=== PATIENT | female | born 1970 | race Caucasian/White ===

== ENCOUNTER 2019-09-04 09:52 | Emergency (ER) | payer OTHER, MEDICAID, SELFPAY ==
[2019-09-04 10:06] VITALS: BP 104/61; PULSE 102; RESP 16; TEMP 37.2; O2SAT 99
--- NOTE | 2019-09-04 10:08 | ED.GENADULT ---
HPI - General Adult General Chief complaint: Upper Respiratory Infection Stated complaint: possible sinus infection Time Seen by Provider: 09/04/19 10:08 Source: patient Mode of arrival: ambulatory Limitations: no limitations History of Present Illness HPI narrative: 49-year-old female patient presents to the [facility] with complaints of sinus pressure and allergies for the past 10 days. Patient denies any fevers, chest pain or shortness of breath. Patient states that she has had a little bit of a cough and coughing up green sputum at times. Patient states she has had a lot of pressure to the front part of her head as well as under her eyes. Patient states she has been sneezing, runny nose. Patient states she does take Vanessa daily and has been using Flonase as well as Sudafed. 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 Related Data Allergies Allergy/AdvReac Type Severity Reaction Status Date / Time No Known Allergies Allergy Unknown Verified 07/06/19 08:18 Review of Systems Review of Systems: Narrative: CONSTITUTIONAL: Denies fever, chills, or sweats. EYES: Denies visual changes, redness, or discharge. ENT: Positive rhinorrhea, congestion, denies sore throat, or otalgia. CARDIOVASCULAR: Denies chest pain, palpitations, or edema. RESPIRATORY: Positive cough, denies dyspnea. GASTROINTESTINAL: Denies abdominal pain, nausea, vomiting, or diarrhea. GENITOURINARY: Denies dysuria or hematuria. SKIN: Denies rash or itching. MUSCULOSKELETAL: Denies back pain, joint pain, or myalgia. NEUROLOGIC: Positive headache, denies numbness, or weakness. PSYCHIATRIC: Denies anxiety or depression. [facility] Past Medical History Medical History Arthritis Chronic back pain Kidney stones Surgical History Surgical History H/O tubal ligation Ablation/hysterectomy Social History Social History Smoking status: Light tobacco smoker Alcohol intake: never Comments At the time of my signature I agree with nursing past medical history, surgical, social, and family history. There is no relevant family history pertinent to the presenting complaint. Exam Narrative: Exam Narrative: GENERAL: Well-appearing, well-nourished, and in no acute distress. HEAD: Normocephalic, atraumatic. Tenderness noted to frontal maxillary sinuses on palpation EYES: PERRLA and EOMI. ENT: Nares clear, no rhinorrhea or epistaxis. Mucous membranes moist. Posterior pharynx with no erythema, tonsil enlargement, exudates or lesions present. Bilateral TMs are clear with no erythema from eyes to the canal. NECK: Supple. No lymphadenopathy CHEST: Clear to auscultation. No respiratory distress. HEART: Regular rate and rhythm. No murmur heard. Normal peripheral pulses. ABDOMEN: Soft, nontender, nondistended, normal active bowel sounds. EXTREMITIES: Normal range of motion. No edema. SKIN: Warm, dry, no rash. NEURO: No focal deficits. Alert and oriented x3. Course Vital Signs Vital signs: Vital Signs Temperature 37.2 C 09/04/19 10:06 Pulse Rate 102 H 09/04/19 10:06 Respiratory Rate 16 09/04/19 10:06 Blood Pressure 104/61 09/04/19 10:06 Pulse Oximetry 99 09/04/19 10:06 Temperature 37.2 C 09/04/19 10:06 Pulse Rate 102 H 09/04/19 10:06 Respiratory Rate 16 09/04/19 10:06 Blood Pressure 104/61 09/04/19 10:06 Pulse Oximetry 99 09/04/19 10:06 Vital signs reviewed. Medical Decision Making Differential Diagnosis Differential Diagnosis: Differential diagnosis: Allergic rhinitis, chronic sinusitis, tonsillitis, acute sinusitis, infectious mononucleosis, seasonal influenza, pertussis, diphtheria, meningococcal disease, viral syndrome, viral bronchitis, RSV. Discussed with patient that since she
== END 2019-09-04 10:21 | disposition home or self-care (01) ==
PROVIDERS: Emergency Provider Nurse Practitioner Family; PCP Internal Medicine
DX: J01.10 Acute frontal sinusitis, unspecified (principal); M19.90 Unspecified osteoarthritis, unspecified site; Z87.442 Personal history of urinary calculi; F17.200 Nicotine dependence, unspecified, uncomplicated
CPT/HCPCS: 99213; G0463

== ENCOUNTER 2020-01-06 12:48 | Outpatient (NON) | payer OTHER, MEDICAID, SELFPAY ==
[2020-01-06 21:42] LABS: SARS-CoV-2 RNA PCR Negative
== END 2020-01-06 12:49 ==
LOC: ANHCOVIDDT 12:49
PROVIDERS: PCP Internal Medicine; Visit Provider Internal Medicine
DX: R68.89 Other general symptoms and signs (principal); Z20.828 Contact with and (suspected) exposure to other viral communicable diseases
CPT/HCPCS: 87635; C9803; U0003

== ENCOUNTER 2020-02-23 09:18 | Emergency (ER) | payer OTHER, MEDICAID, SELFPAY ==
[2020-02-23 09:28] VITALS: BP 110/70; PULSE 98; RESP 16; TEMP 36.6; O2SAT 98
--- NOTE | 2020-02-23 09:47 | ED.URI ---
HPI - URI/Sore Throat General Chief Complaint: Upper Respiratory Infection Stated Complaint: Cough,Ear Pain History of Present Illness HPI Narrative: This is a 49-year-old white female that presented to the urgent care with complaints of sore throat, earache, photophobia, headache that she has been having since this weekend. Patient does have a history of sinusitis and had strep throat last year. At home she has been taking Tylenol and alternating it with ibuprofen and Flonase without any relief. The patient denies SOB, CP, palpitation, extremity numbness, lightheadedness, dizziness, constipation, diarrhea, chills, or fever. Patient did recently get checked for Covid which was negative Related Data Home Medications Medication Instructions Recorded Confirmed fexofenadine [Vanessa] 180 mg PO DAILY 02/23/20 02/23/20 fluticasone propionate [Flonase] 1 spray INTRANASAL DAILY 02/23/20 02/23/20 Allergies Allergy/AdvReac Type Severity Reaction Status Date / Time Mmvvmjv-[id number]-Qcp Reductase AdvReac Intermediate Muscle Verified 11/26/19 13:48 Inhibitor cramps/pain Review of Systems Review of Systems: All systems reviewed & are unremarkable except as noted in HPI and below (10 point system review) [facility] Past Medical History Medical History Arthritis Chronic back pain Kidney stones Surgical History Surgical History H/O tubal ligation Ablation/hysterectomy Family History Family History Mother Family history of malignant neoplasm of thyroid Family history of malignant neoplasm Father Patient's father is Sibling Family history of malignant neoplasm of thyroid Other Family history of malignant neoplasm of breast Social History Social History Smoking status: Light tobacco smoker Alcohol intake: never Exam Narrative: Exam Narrative: GENERAL: This is a well-nourished, well-developed patient, in no apparent distress. HEAD: normocephalic, atraumatic. EYES: PERRL. Sclera clear/white. Vision is grossly intact. EARS: External ears normal, auditory canals clear and without drainage, TMs normal without perforation. Hearing grossly intact. NOSE: External nose normal with no obvious nasal discharge, nares without redness, no rhinorrhea. Nasal sinuses tender THROAT: Mucous membranes moist, posterior pharynx edematous with erythema. NECK: Neck supple, non-tender without lymphadenopathy, masses or thyromegaly. CARDIOVASCULAR: Regular rate and rhythm without murmurs, gallops, or rubs. RESPIRATORY: Clear to auscultation. Breath sounds equal bilaterally. No wheezes, rales, or rhonchi. GASTROINTESTINAL: Abdomen soft, non-tender, nondistended. Bowel sounds are active. No hepato-splenomegaly, or palpable masses. No guarding. SKIN: warm, intact with no suspicious lesions or rash, good texture and turgor. NEURO: awake, alert, and oriented to person, place and time. There were no obvious focal neurologic abnormalities. Steady gait EXTREMITIES: Normal range of motion. No edema. No calf tenderness. Negative Homans sign bilaterally. BACK: Nontender without deformity or crepitance. No flank tenderness. Course Course Emergency Course: Patient will discharge home today with Augmentin x7 days continue to use her Flonase Vital Signs Vital signs: Vital Signs Temperature 97.8 F 02/23/20 09:28 Pulse Rate 98 02/23/20 09:28 Respiratory Rate 16 02/23/20 09:28 Blood Pressure 110/70 02/23/20 09:28 Pulse Oximetry 98 02/23/20 09:28 Temperature 97.8 F 02/23/20 09:28 Pulse Rate 98 02/23/20 09:28 Respiratory Rate 16 02/23/20 09:28 Blood Pressure 110/70 02/23/20 09:28 Pulse Oximetry 98 02/23/20 09:28 MDM - URI/Sore Throat Differentia
== END 2020-02-23 09:58 | disposition home or self-care (01) ==
PROVIDERS: Emergency Provider Nurse Practitioner; PCP Internal Medicine
DX: J32.9 Chronic sinusitis, unspecified (principal); F17.200 Nicotine dependence, unspecified, uncomplicated; M19.90 Unspecified osteoarthritis, unspecified site
CPT/HCPCS: 87081; 87880; 99213; G0463

== ENCOUNTER 2020-04-13 11:51 | Outpatient (NON) | payer OTHER, MEDICAID, SELFPAY ==
[2020-04-13 21:41] LABS: SARS-CoV-2 RNA PCR Negative
== END 2020-04-13 11:52 ==
LOC: ANHCOVIDDT 11:52
PROVIDERS: Family Provider Internal Medicine; PCP Internal Medicine; Visit Provider Internal Medicine
DX: R68.89 Other general symptoms and signs (principal); Z20.822 Contact with and (suspected) exposure to COVID-19
CPT/HCPCS: C9803; U0003; U0005

== ENCOUNTER 2020-08-01 22:13 | Emergency (ER) | payer OTHER, MEDICAID, SELFPAY ==
[2020-08-01 22:17] VITALS: BP 133/74; PULSE 89; RESP 18; TEMP 36.7; O2SAT 100
--- NOTE | 2020-08-01 23:12 | PC.NURSE ---
pt to ED c/o Right upper dental pain d/t problem tooth, which pt reports has been painful in the past. denies access to dental care. reports pain got worse today.
--- NOTE | 2020-08-01 23:21 | ED.DENTAL ---
HPI - Dental/Oral General Chief complaint: Dental/Oral Stated complaint: right jaw pain Time Seen by Provider: 08/01/20 23:18 Source: patient Mode of arrival: ambulatory Limitations: no limitations History of Present Illness HPI Narrative: Patient is a 50 year old female who presents complaining of right upper dental pain x 1 day. She reports having the same in that past. She reports she is waiting to have tooth removed. Patient reports dental extractions on the left side but has not had right side completed at this time due to financial difficulties. She denies all other complaints at this time. Related Data Home Medications Medication Instructions Recorded Confirmed fexofenadine [Vanessa] 180 mg PO DAILY 02/23/20 05/08/20 fluticasone propionate [Flonase] 1 spray INTRANASAL DAILY 02/23/20 05/08/20 Allergies Allergy/AdvReac Type Severity Reaction Status Date / Time Fjzlvdg-Rev-Bth Reductase AdvReac Intermediate Muscle Verified 08/01/20 22:20 Inhibitor cramps/pain Review of Systems Review of Systems: Narrative: CONSTITUTIONAL: Denies fever, chills, or sweats. EYES: Denies visual changes, redness, or discharge. ENT: Denies rhinorrhea, congestion, sore throat, or otalgia. Right upper dental pain CARDIOVASCULAR: Denies chest pain, palpitations, or edema. RESPIRATORY: Denies cough or dyspnea. GASTROINTESTINAL: Denies abdominal pain, nausea, vomiting, or diarrhea. GENITOURINARY: Denies dysuria or hematuria. SKIN: Denies rash or itching. MUSCULOSKELETAL: Denies back pain, joint pain, or myalgia. NEUROLOGIC: Denies headache, numbness, dizziness, or weakness. PSYCHIATRIC: Denies anxiety or depression. [facility] Past Medical History Medical History (Updated 08/01/20 @ 23:43 by ROC Garibay) Arthritis Chronic back pain Kidney stones Surgical History Surgical History H/O tubal ligation Ablation/hysterectomy Family History Family History Mother Family history of malignant neoplasm of thyroid Family history of malignant neoplasm Father Patient's father is Sibling Family history of malignant neoplasm of thyroid Other Family history of malignant neoplasm of breast Social History Social History (Updated 08/01/20 @ 23:38 by ROC Garibay) Smoking status: Light tobacco smoker Alcohol intake: never Substance use: never Comments At the time of signature, I have reviewed and agree with nursing past medical, surgical, social, and family history unless otherwise noted. Please see nursing chart for further information. There is no relevant family history pertinent to the presenting complaint. Exam Narrative: Exam Narrative: GENERAL: Well-appearing, well-nourished, and in no acute distress. HEAD: Normocephalic, atraumatic. EYES: EOMI. No redness or drainage. Conjunctiva are normal. ENT: Mucous membranes pink and moist. Multiple dental caries and dental fractures. CHEST: No respiratory distress. Clear to auscultation. HEART: Regular rate and rhythm. EXTREMITIES: Normal range of motion. SKIN: Warm, dry, no rash. NEURO: No focal deficits. Alert and oriented x3. Gait steady. PSYCH: Normal affect. No signs of depression or anxiety. Course Vital Signs Vital signs: Vital Signs Temperature 36.7 C 08/01/20 22:17 Pulse Rate 89 08/01/20 22:17 Respiratory Rate 18 08/01/20 22:17 Blood Pressure 133/74 08/01/20 22:17 Pulse Oximetry 100 08/01/20 22:17 Temperature 36.7 C 08/01/20 22:17 Pulse Rate 89 08/01/20 22:17 Respiratory Rate 18 08/01/20 22:17 Blood Pressure 133/74 08/01/20 22:17 Pulse Oximetry 100 08/01/20 22:17 Reviewed-patient is informed that they may have pre-hypertension or hypertension based on a blood pressure reading. I recommend the patient call the primary care provider listed on their disc
[2020-08-01] MEDS: AMOXICILLIN/CLAVULANATE K 875-125 MG TAB 1 TABLET PO (23:54)
== END 2020-08-01 23:56 | disposition home or self-care (01) ==
PROVIDERS: Emergency Provider Nurse Practitioner; PCP Internal Medicine
DX: K02.9 Dental caries, unspecified (principal); K04.7 Periapical abscess without sinus; K08.89 Other specified disorders of teeth and supporting structures; M19.90 Unspecified osteoarthritis, unspecified site
CPT/HCPCS: 99283; A9270

== ENCOUNTER 2020-11-02 08:44 | Observation (INO) | payer OTHER, MEDICAID, SELFPAY ==
[2020-11-02] VITALS (8 sets, daily range): BP systolic 88–103; BP diastolic 60–84; PULSE 80–130; RESP 12–26; TEMP 36.1–37; O2SAT 96–99
--- NOTE | 2020-11-02 | ECHO_ITS ---
Patient Info Name: Slime Ramirez Age: 50 years : 1970 Gender: Female Ht: 65 in Wt: 150 lbs BSA: 1.78 m2 HR: 82 bpm BP: 98 / 74 mmHg Heart Rhythm: Sinus Rhythm Exam Date: 11/03/2020 8:54 AM Exam Location: [facility] Patient Status: Inpatient Admit Date: 11/02/2020 Staff Ordering Physician: Araceli Meade MD Import Export Coordinator: Marek Borden RDCS, RT Attending Provider: Renata Solis PA-C Referring Physician: Deshaun CALVIN; Exam Type: CA echo doppler color flow Study Info Indications I52 - Other heart disorders in diseases classified elsewhere Complete two-dimensional, color flow and Doppler transthoracic echocardiogram is performed. Strain analysis performed. Summary 1. Complete two-dimensional, color flow and Doppler transthoracic echocardiogram is performed. 2. Left ventricular chamber dimension is normal. 3. Left ventricular systolic function is normal, estimated at 55-60%. 4. There is no increased left ventricular wall thickness. 5. There is no aortic valve stenosis. 6. There is mild mitral valve regurgitation. 7. There is mild tricuspid valve regurgitation. 8. No pulmonary hypertension, estimated pulmonary arterial systolic pressure is 22 mmHg. Left Ventricle Left ventricular chamber dimension is normal. Left ventricular systolic function is normal, estimated at 55-60%. There is no increased left ventricular wall thickness. The left ventricular diastolic function is normal. Global longitudinal strain is normal at -21 %. Right Ventricle Right ventricular chamber dimension is normal. Right ventricular systolic function is normal. Left Atria Left atrial chamber dimension is normal. Right Atria Right atrial chamber dimension is normal. Aortic Valve The aortic valve is probable trileaflet. There is no aortic valve stenosis. There is no aortic valve regurgitation. Pulmonic Valve The pulmonic valve is not well visualized. Mitral Valve The mitral valve has normal leaflets. There is mild mitral valve regurgitation. Tricuspid Valve The tricuspid valve leaflets are normal. There is mild tricuspid valve regurgitation. No pulmonary hypertension, estimated pulmonary arterial systolic pressure is 22 mmHg. Pericardium/Pleural The pericardium appears normal. There is trivial pericardial effusion. Inferior Vena Cava Normal inferior vena cava with >50% collapse upon inspiration consistent with Empty right atrial pressure, 5 mmHg. Aorta The aortic root size at the sinus of Valsalva is normal. Left Ventricular Outflow Tract Name Value Normal LVOT 2D LVOT Diameter 2.0 cm LVOT Doppler LVOT Peak Gradient 4 mmHg LVOT Mean Gradient 2 mmHg LVOT VTI 20 cm LVOT VTI/AV VTI Ratio 0.7 LVOT Stroke Volume 62 ml LVOT CO 5.1 l/min LVOT CI 2.9 l/min/m2 Mitral Valve Name
--- NOTE | ~2020-11-02 | CT_ITS ---
EXAMINATION: CTA chest PE abdomen pel DATE: 11/02/2020 10:46 INDICATION: Epigastric abdominal pain. Dyspnea. TECHNIQUE: Computed tomography angiography (CTA) of the chest was performed with 100 mL Omnipaque-350 intravenous contrast timed to evaluate the pulmonary arteries. Coronal maximum intensity projection 3D-reconstructions were created by the technologist. Computed tomography (CT) of the abdomen and pelv is was performed with intravenous contrast. Automated exposure control and iterative reconstruction t echnique were employed. The dose-length product was 482.26 mGy-cm. COMPARISON: None. FINDINGS: CTA chest: The lungs demonstrate mild atelectasis. No pleural effusion. The heart size is normal. No pericardial effusion. There is no pulmonary embolus. There is mild thoracic spondylosis. CT abdomen and pelvis: The liver, gallbladder, spleen, pancreas, adrenal glands, and right kidney are normal. There are cysts in left kidney measuring up to 3.0 cm. There are surgical clips at the fallo pian tubes bilaterally. There are no dilated loops of bowel. The appendix is normal. There are no pat hologically enlarged lymph nodes. There is no free intraperitoneal fluid. There is mild lumbar spondy losis. IMPRESSION: 1. No pulmonary embolus. 2. No etiology for the patient's symptoms. Reviewed, dictated and finalized at location B.
--- NOTE | ~2020-11-02 | XR_ITS ---
EXAMINATION: XR chest 2V DATE: 11/02/2020 09:23 INDICATION: Chest pain. TECHNIQUE: Frontal and lateral views of the chest were obtained. COMPARISON: Chest 2 views 07/08/2013 FINDINGS: The chest demonstrates clear lungs without pneumonia, pleural effusion, or pneumothorax. Th e heart size is normal. IMPRESSION: 1. No acute cardiopulmonary disease. Reviewed, dictated and finalized at location B.
--- NOTE | 2020-11-02 09:02 | ECG_ITS ---
Measurements Intervals [place] Rate: 129 P: 105 VA: 211 QRS: 89 QRSD: 87 T: -18 QT: 315 QTc: 461 Interpretive Statements ECTOPIC ATRIAL TACHYCARDIA WITH RAPID VENTRICULAR RESPONSE LOW QRS VOLTAGE IN PRECORDIAL LEADS BORDERLINE ST-T WAVE ABNORMALITY- ANTEROLAT/INF LEADS ABNORMAL ECG Electronically Signed On 11-02-2020 12:13:13 CDT by Can Treviño D.O.
--- NOTE | 2020-11-02 09:03 | ED.CHESTPAIN ---
HPI - Chest Pain General Chief Complaint: Chest Pain Stated Complaint: multiple complaints Time Seen by Provider: 11/02/20 09:01 Source: patient Mode of arrival: ambulatory Limitations: no limitations History of Present Illness HPI narrative: Patient is a 50-year-old female with a history of hyperlipidemia who presents for evaluation of epigastric pain. Patient reports intermittent, burning epigastric pain over the past 2 weeks, was recently started on omeprazole by her primary care physician. Patient describes the pain as moderate to severe nature, overnight she was unable to sleep secondary to the pain. She reports mild nausea without emesis. No fever, chills, cough although she does report some shortness of breath and palpitations. No significant chest pain, no radiation of the pain to the back or neck. Patient states that the pain is worse after eating. She reports mild abdominal distention. She denies diarrhea or constipation. Related Data Home Medications Medication Instructions Recorded Confirmed fluticasone propionate 50 1 spray INTRANASAL DAILY PRN 09/20/20 11/02/20 mcg/actuation nasal spray,suspension albuterol sulfate [Ventolin HFA] See Rx Instructions .ROUTE 11/02/20 11/02/20 .COMPLEX PRN alprazolam 1 mg PO TID 11/02/20 11/02/20 cyclobenzaprine See Rx Instructions .ROUTE 11/02/20 11/02/20 .COMPLEX PRN hydrocodone-acetaminophen 1 tablet PO BID PRN 11/02/20 11/02/20 trazodone 150 mg PO HS 11/02/20 11/02/20 Allergies Allergy/AdvReac Type Severity Reaction Status Date / Time Wqbvigy-Gsj-Edy Reductase AdvReac Intermediate Muscle Verified 11/02/20 15:42 Inhibitor cramps/pain Review of Systems Review of Systems: CONSTITUTIONAL: Denies fever, chills, or sweats. EYES: Denies visual changes, redness, or discharge. ENT: Denies rhinorrhea, congestion, sore throat, or otalgia. CARDIOVASCULAR: Denies chest pain, reports palpitations RESPIRATORY: Denies cough, reports mild shortness of breath GASTROINTESTINAL: Reports epigastric pain, nausea, denies vomiting GENITOURINARY: Denies dysuria or hematuria. SKIN: Denies rash or itching. MUSCULOSKELETAL: Denies back pain, joint pain, or myalgia. NEUROLOGIC: Denies headache, numbness, or weakness. [facility] Past Medical History Medical History (Updated 11/02/20 @ 13:24 by Araceli Meade MD) Arthritis Chronic back pain Kidney stones Surgical History Surgical History H/O tubal ligation Ablation/hysterectomy Family History Family History Mother Family history of malignant neoplasm of thyroid Family history of malignant neoplasm Father Patient's father is Sibling Family history of malignant neoplasm of thyroid Other Family history of malignant neoplasm of breast Social History Social History Smoking packs per day: 0.5 Smoking cigarettes per day: 10.0 Years smoked: 30 Smoking pack-years: 15.00 Smoking status: Current every day smoker Tobacco type: cigarettes Second hand tobacco smoke exposure: Yes Alcohol intake: never Substance use: never Spiritual care concerns: No Exam Narrative: GENERAL: Awake, alert, conversant HEAD: Normocephalic, atraumatic. EYES: PERRLA and EOMI. ENT: Nares clear, no rhinorrhea or epistaxis. Mucous membranes moist. NECK: Supple. CHEST: No respiratory distress, breathing even and non labored HEART: Tachycardic rate, sinus rhythm ABDOMEN:Non distended, epigastric and right upper quadrant tenderness, negative Borden sign, no rebound, no guarding, nonrigid EXTREMITIES: Normal range of motion. No edema. SKIN: Warm, dry, no rash. NEURO:No focal deficits. Alert and oriented x3 Course Vital Signs Vital signs: Vital Signs Temperature 36.6 C 11/02/20 09:04 Pulse Rate 129 H 11/02/20
[2020-11-02] MEDS: SODIUM CHLORIDE 0.9% IV 1,000 ML 999 ML IV CONT (09:24)
[2020-11-02] MEDS: ONDANSETRON INJ 4 MG/2 ML VIAL IV PUSH (09:25)
[2020-11-02] MEDS: MORPHINE SULFATE (*CRX) 4 MG/ML INJ IV PUSH (09:25)
[2020-11-02 09:49] LABS: Basophils Absolute Auto 0.1 K/mm3 (0.0-0.1); Basophils Percent Auto 0.6 % (0.2-1.2); Eosinophils Absolute Auto 0.2 K/mm3 (0-0.3); Eosinophils Percent Auto 2.2 % (0-4.4); Hematocrit 40.7 % (37.0-47.0); Hemoglobin 13.2 g/dL (12.0-15.0); Immature Granulocyte Absolute 0.03 K/mm3 (0.00-0.031); Immature Granulocyte Percent A 0.3 % (0-0.5); Lymphocytes Absolute Auto 3.17 K/mm3 (0.9-3.2); Mean Corpuscular HGB Conc 32.4 g/dl (32-36); Mean Corpuscular Hemoglobin 31.1 pg (26-34); Mean Corpuscular Volume 95.8 fl (80-100); Mean Platelet Volume 10.2 fl (7.4-10.4); Monocytes Absolute Auto 0.9 K/mm3 (0.1-0.6); Monocytes Percent Auto 8.6 % (2.6-8.5); Neutrophils Absolute Auto 6.2 K/mm3 (1.3-6.7); Neutrophils Percent Auto 58.3 % (45.5-73.1); Platelet Count Result 316 k/mm3 (150-375); Red Blood Count 4.25 M/mm3 (4.2-5.4); Red Cell Distribution Width 13.1 % (11.5-14.5); White Blood Count 10.6 K/mm3 (4.5-10.0)
[2020-11-02 10:04] LABS: INR 0.9; Partial Thromboplastin Time 25.2 SECONDS (22.3-36.8); Prothrombin Time 11.8 Seconds (11.1-14.7)
[2020-11-02 10:05] LABS: Lactic Acid Reflex 0.7 mmol/L (0.7-2.1)
[2020-11-02 10:08] LABS: Alanine Aminotransferase 27 U/L (4-35); Albumin Level 3.7 g/dL (3.5-5.1); Alkaline Phosphatase 78 U/L (38-126); Anion Gap 6 mmol/L (8-16); Aspartate Amino Transferase 30 U/L (14-36); Bilirubin,Total 0.6 mg/dL (0.2-1.3); Blood Urea Nitrogen 16 mg/dL (7-17); Calcium 8.7 mg/dL (8.4-10.2); Carbon Dioxide 21 mmol/L (22-30); Chloride 110 mmol/L (98-107); Estimated CRCL calculation 86 ml/min; Estimated Glomerular Filt Rate > 60; Glucose 92 mg/dL (65-110); Sodium 137 mmol/L (137-145)
[2020-11-02 10:13] LABS: NT Pro B Type Natriuretic Pept 2670 pg/mL (5-100)
[2020-11-02 10:14] LABS: Alanine Aminotransferase 29 U/L (4-35); Albumin Level 3.9 g/dL (3.5-5.1); Alkaline Phosphatase 80 U/L (38-126); Aspartate Amino Transferase 32 U/L (14-36); Bilirubin,Total 0.7 mg/dL (0.2-1.3); Lipase 37 U/L (23-300)
[2020-11-02 10:15] LABS: Troponin I < 0.012 ng/mL (0.000-0.034)
--- NOTE | 2020-11-02 10:36 | PC.NURSE ---
Pt states she is unable to give urine sample at this time. Informed pt that we will need a sample ASHLEY
[2020-11-02 11:34] LABS: Troponin I < 0.012 ng/mL (0.000-0.034)
[2020-11-02 11:43] LABS: Add Urine Microscopic? YES; Appearance Urine Cloudy (Clear); Bilirubin Urine Negative (Negative); Blood Urine Negative (Negative); Color Urine Straw (Yellow); Glucose Urine UA Negative (Negative); Ketones Urine Trace mg/dL (Negative); Leukocyte Esterase Ur Negative LEU/UL (Negative); Mucus Urine Rare /lpf; Nitrate Urine Negative (Negative); Protein Urine Negative (Negative); RBC Urine 0-2 /hpf (0-2); Squamous Epithelial Cell Urine Many /hpf (Few); Urobilinogen Urine Negative mg/dL (<2.0); WBC Urine 0-3 /hpf
[2020-11-02 12:04] LABS: Specific Grav Ur 1.042 (1.001-1.035)
[2020-11-02] MEDS: BELLADONNA ALK/PHENOB ELIX 10 ML, MAG HYDROX/ALUMINUM HYD/SIMETH 30 ML, LIDOCAINE HCL 2... PO (13:36)
--- NOTE | 2020-11-02 14:42 | PC.NURSE ---
This patient, Slime Ramirez, was admitted to IMU Room 206-01. Patient/family oriented to hospital policies and general routines including ID bracelet, bed and alarms, visiting hours, pain management, procedures, bathroom and other care routines, personal items, smoking policy, room service/diet, and visiting hours. Information on how to activate the Rapid Response Team has been discussed. Patient/Family are encouraged to report perceived risks to care and to ask questions if they do not understand what they are told or what they should do.
[2020-11-02 16:05] LABS: Troponin I < 0.012 ng/mL (0.000-0.034)
--- NOTE | 2020-11-02 16:27 | PM.CNCAR ---
Assessment and Plan Assessment and plan (1) Tachycardia: Code(s): R00.0 - Tachycardia, unspecified Status: Acute Assessment and Plan: Patient has had a persistent tachycardia with heart rates in the 120s since admission and no P waves visible on her EKG. Possibly a junctional tachycardia or atrial tachycardia. Apparently has had some episodes in the past which resolved spontaneously. Will try Adenocard to convert. (2) Elevated brain natriuretic peptide (BNP) level: Code(s): R79.89 - Other specified abnormal findings of blood chemistry Status: Acute Assessment and Plan: Patient has a mildly elevated BNP and SOB but clear lungs on chest x-ray. May have developed some mild heart failure from persistent tachyarrhythmia. Check echo in the morning. (3) Chest tightness: Code(s): R07.89 - Other chest pain Status: Acute Assessment and Plan: Likely related to the above problems, doubt CAD or ACS. Troponins negative and no ischemia on EKG. (4) Tobacco use: Code(s): Z72.0 - Tobacco use Status: Acute Assessment and Plan: Smoking cessation always encouraged. (5) Epigastric discomfort: Code(s): R10.13 - Epigastric pain Status: Acute Assessment and Plan: Probably unrelated to the above problems. Will add a PPI. History of Present Illness History of Present Illness Consult date/time: 11/02/20 16:27 Reason For Visit: Chest Pain, Elevated BNP Narrative: Date of service: 11/02/2020 Slime Ramirez is a 50-year-old female whom I was asked to see at the request of Dr. Meade and the hospitalist for my advice and opinion regarding her elevated BNP, chest pain and dyspnea. She has history of hyperlipidemia, tobacco use, chronic pain. Ms. Ramirez has been having trouble with stabbing epigastric discomfort associated with swallowing for last 10-12 days. She has never had this type of epigastric pain before. Yesterday at work she started having problems with fast heartbeats, numbness of her right hand, shortness of breath and chest tightness. When she lay down she could feel the fast heartbeats in her chest radiating up to her neck. She has had about 3 episodes of fast heartbeats shows last 6 months which she thought might be related to anxiety and the go away by themselves. She presented to the emergency room complaining of abdominal and chest pain and was tachycardic with a heart rate of 129. EKG showed no acute changes except a tachyarrhythmia, perhaps an atrial tachycardia or junctional tachycardia. CT negative for PE. Troponins negative. 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 She does have a history of elevated cholesterol but no hypertension or diabetes. Review of Systems Constitutional: Constitutional: Reports no additional constitutional complaints Eyes: Eyes: Reports no additional eye complaints ENT: Denies nasal congestion Cardiovascular: Cardiovascular: Reports chest pain, Denies pedal edema, Denies leg edema, Denies lightheadedness and Reports palpitations Respiratory: Respiratory: Denies cough, Reports dyspnea and Reports dyspnea on exertion Gastrointestinal: Gastrointestinal: Denies abdominal pain Genitourinary: Genitourinary: Denies hematuria Musculoskeletal: Musculoskeletal: Reports back pain Integumentary/Breasts: Skin/Breast: Denies rash Neurologic: Denies confusion Psychiatric: Psychiatric: Reports anxiety and Denies behavioral changes PMFSH Past Medical History Medical History Arthritis Chronic back pain Kidney stones Tobacco use Surgi
[2020-11-02] MEDS: ALPRAZolam (*CRX) 0.5 MG TABLET 1 MG PO (17:31)
[2020-11-02] MEDS: HYDROcodone/acetaminophen (*CRX) 10-325 MG TABLET 1 TAB PO (17:31)
--- NOTE | 2020-11-02 19:00 | PM.IMHP ---
H&P: HPI History of Present Illness Date/Time: 11/02/20 19:00 Chief Complaint: Chest tightness and shortness of breath. Narrative: This is a pleasant 50-year-old female with anxiety, dyslipidemia, and chronic back pain who presented to the emergency department earlier today via private vehicle for evaluation of chest tightness and shortness of breath. Over the last couple of weeks she has had intermittent discomfort in the low sternal region that she describes as almost pressure-like in nature. She also noted that she would have occasional stabbing pain in the epigastrium, mainly with swallowing, and after speaking with her primary care provider she trialed omeprazole for 5 days without much change in her symptoms. She goes on to say that she has not really ever had issues with heartburn or GERD though she has been taking Tums, mainly at nighttime, when her symptoms seem to be worse. In addition to the pressure-like sensation in the low chest, she has periods of time where she feels her heart racing and pounding, worse at nighttime. Over the last several months she has had a few episodes where she feels her heart racing and she has attributed that to anxiety as the father of her child recently and she has had increase in stress due to that. 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 In the emergency department she was found to be tachycardic in the 120s to 130s pretty consistently. TSH as well as CTA of the chest were unremarkable. Dr. Wells has seen the patient and after noting the absence of P waves on EKG, she elected to try adenosine which restored the patient to a sinus rhythm. She is now being started on verapamil and will be monitored closely overnight. Review of Systems Review of Systems: Twelve systems were reviewed with pertinent positives and negatives as per HPI. No fever, chills, or sweats. No recent cold or flu symptoms. She denies orthopnea, PND, and lower extremity edema. No nausea or vomiting. She typically has a bowel movement every couple of days and will have issues with constipation intermittently. Weight has remained stable. No caffeine or alcohol abuse. She denies taking nqqm-met-udcypro supplements. No dysphagia. Except as documented, all other systems were reviewed and are negative. [facility] Past Medical History Medical History Arthritis Chronic back pain Kidney stones Tobacco use Surgical History Surgical History (Updated 11/02/20 @ 22:24 by Carrie Jimenez PA-C) History of endometrial ablation History of tubal ligation Family History Family History Mother Family history of malignant neoplasm Lymphoma Father Patient's father is Estranged from father does not know his past history Sibling Thyroid cancer Other Heart disease Grandmother of heart failure Other Family history of malignant neoplasm of breast Social History Social History (Updated 11/02/20 @ 22:25 by Carrie Jimenez PA-C) Social History: , just got her daughter off to [facility], smokes half a pack a day, 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 No significant alcohol use. No illicit substance use. Code status: Full code. Smoking packs per day: 0.5 Smoking cigarettes per day: 10.0 Years smoked: 30 Smoking pack-years: 15.00 Smoking status: Current every day smoker Tobacco type: cigarettes Second hand tobacco smoke exposure: Yes Alcohol intake: never Substance use: never Spiritual care concerns: No Meds Home Medications and Allergies Home Medications Medication Instructions Recorded Confirmed Type ezetimibe 10 mg tablet 10 mg PO DAILY #30 tablet 09/20/20 11/02/20 Rx fluticasone propionate 50 1 spray INTRANASAL DAILY PRN 09/20/20 11/02/20 History mcg/actuation
[2020-11-02 19:08] LABS: Troponin I < 0.012 ng/mL (0.000-0.034)
[2020-11-02] MEDS: ADENOSINE IV SOLN 6 MG/2 ML VIAL IV PUSH (19:47)
--- NOTE | 2020-11-02 19:53 | PC.NURSE ---
Patient converted from atrial tachycardia 125 to NSR 80's post 6 mg push of adenocard IV. Patient on crash cart monitor with defibrillator pads applied at time of administration. Dr. Wells and Petra Head RN also at bedside. See telemetry strip.
[2020-11-02] MEDS: EZETIMIBE 10 MG TABLET PO (22:31)
[2020-11-02] MEDS: traZODone HCL 50 MG TABLET 150 MG PO (22:31)
[2020-11-02] MEDS: PANTOPRAZOLE 40 MG TABLET PO (22:33)
[2020-11-03] VITALS (7 sets, daily range): BP systolic 95–111; BP diastolic 49–66; PULSE 72–90; RESP 12–16; TEMP 36.1–37.1; O2SAT 95–98
[2020-11-03 06:23] LABS: Anion Gap 5 mmol/L (8-16); Blood Urea Nitrogen 13 mg/dL (7-17); Calcium 8.4 mg/dL (8.4-10.2); Carbon Dioxide 24 mmol/L (22-30); Chloride 105 mmol/L (98-107); Estimated CRCL calculation 75 ml/min; Estimated Glomerular Filt Rate > 60; Glucose 92 mg/dL (65-110); Magnesium 1.9 mg/dL (1.6-2.3); Potassium 3.6 mmol/L (3.4-5.0); Sodium 134 mmol/L (137-145)
--- NOTE | 2020-11-03 07:19 | PM.IMPN ---
Progress Note: A&P Assessment and Plan (1) Tachycardia: Code(s): R00.0 - Tachycardia, unspecified Status: Acute Assessment and Plan: Junctional versus atrial tachycardia. Status post elective pharmacologic cardioversion, now in normal sinus rhythm after receiving adenosine 6 mg IV push. She has been started on verapamil [address] Wells whose input is appreciated. (2) Elevated brain natriuretic peptide (BNP) level: Code(s): R79.89 - Other specified abnormal findings of blood chemistry Status: Acute Assessment and Plan: Patient has had some mild shortness of breath, possible high output failure from ongoing tachycardia. No PE or infiltrates on imaging. Echocardiogram in a.m. (3) Chest tightness: Code(s): R07.89 - Other chest pain Status: Acute Assessment and Plan: Likely related to tachycardia. No ST segment changes on EKG. Echocardiogram in a.m. (4) Epigastric discomfort: Code(s): R10.13 - Epigastric pain Status: Acute Assessment and Plan: Patient has had some discomfort with swallowing and has been using Tums with some benefit. She has had quite a bit of stress recently and may very well have underlying gastritis or even ulcers. Continue PPI. May need GI referral. (5) Tobacco use: Code(s): Z72.0 - Tobacco use Status: Acute Assessment and Plan: Smoking cessation is encouraged. She declines the need for nicotine patch. Subjective Date/time seen: 11/03/20 07:19 Exam Narrative: General: Well-developed female in the semi-Hernandez position in bed in no acute distress. Weight: 68.18 kg. BMI: 25. HEENT: Normocephalic, atraumatic. PERRL, EOMI. Sclerae anicteric. Oral mucosa moist. Oropharynx clear. Neck: Supple. No JVD or thyromegaly. Respiratory: Lungs are clear to auscultation bilaterally. Cardiovascular: Tachycardic with S1-S2. No murmur. Gastrointestinal: Abdomen is soft, nontender, and nondistended with positive bowel sounds. Skin: Warm and dry. No rash or lesions on limited exam. Extremities: No cyanosis, clubbing, or edema. Radial and pedal pulses intact. Neurological: Alert. Cranial nerves 2-12 are grossly intact. No gross focal deficits to casual conversation. Psychiatric: Pleasant and cooperative with normal mood and affect. Judgment and insight intact. Objective Data Vital Signs Vital Signs: Vital Signs - 24 hr 11/02/20 09:04 11/02/20 11:21 11/02/20 13:00 Temperature 36.6 C Pulse Rate 129 H 119 H 122 H Respiratory Rate 26 H 18 13 Blood Pressure 103/84 98/74 L 93/60 L Pulse Oximetry 98 98 96 11/02/20 15:36 11/02/20 16:00 11/02/20 18:00 Temperature 37.0 C Pulse Rate 128 H 130 H 121 H Respiratory Rate 12 Blood Pressure 100/69 Pulse Oximetry 99 11/02/20 20:00 11/02/20 22:00 11/03/20 00:00 Temperature 36.1 C L 37.1 C Pulse Rate 80 81 80 Respiratory Rate 16 12 Blood Pressure 88/65 L 95/57 L Pulse Oximetry 98 95 11/03/20 02:00 11/03/20 04:00 11/03/20 06:00 Temperature 36.4 C Pulse Rate 76 81 74 Respiratory Rate 16 Blood Pressure 101/51 L Pulse Oximetry 98 Intake/Output Intake/Output: Intake & Output 10/31/20 11/01/20 11/02/20 11/03/20 23:59 23:59 23:59 23:59 Intake Total 1240 350 Output Total 200 Balance 1040 350 Meds/Results Medications: Active Medications Generic Name Dose Route Start Last Admin Trade Name Freq PRN Reason Stop Dose Admin Hydrocodone Bitart/Acetaminophen 1 tab 11/02/20 16:51 11/02/20 17:31 Hydrocodone/Acetaminophen (*Crx) 10-325 Mg Tablet PO 1 tab BID PRN Administration Pain Rated 4-6 Albuterol 2 puff 11/02/20 16:51 Albuterol Sulfate (*Sp) Aerosol 1 Puff INHALATION Q4H PRN Shortness Of Breath Alprazolam 1 mg 11/02/20 16:51 11/02/20 17:31 Alprazolam (*Crx) 0.5 Mg Tablet PO 1 mg TID PRN Administration Anxiety Cyclobenzaprine HCl 10 mg 11/02
[2020-11-03] MEDS: VERAPAMIL HCL 40 MG TABLET PO (10:10)
[2020-11-03] MEDS: ALPRAZolam (*CRX) 0.5 MG TABLET 1 MG PO (10:10)
--- NOTE | 2020-11-03 11:31 | PM.PNCARD ---
Progress Note: A&P Assessment and Plan (1) Tachycardia: Code(s): R00.0 - Tachycardia, unspecified Status: Acute Assessment and Plan: Patient has had a persistent tachycardia with heart rates in the 120s since admission and no P waves visible on her EKG. Possibly a junctional tachycardia or atrial tachycardia terminated promptly with adenosine. No recurrence. Verapamil 40 mg b.i.d. ordered. Observe tolerance. Check 2D echocardiogram. If stable, discharge home today. Follow up with Dr. Wells as outpatient. We discussed options remains observation, medical therapy and/or ablation by electrophysiology as an outpatient. Patient verbalizes understanding. Patient comfortable with plan of care. All questions answered to her satisfaction. (2) Elevated brain natriuretic peptide (BNP) level: Code(s): R79.89 - Other specified abnormal findings of blood chemistry Status: Acute Assessment and Plan: Awaiting echocardiogram to be uploaded for review. Would like to review prior to discharge. (3) Chest tightness: Code(s): R07.89 - Other chest pain Status: Acute Assessment and Plan: Resolved post conversion of atrial tachycardia to sinus rhythm with adenosine. Likely related to the above problems, doubt CAD or ACS. Troponins negative and no ischemia on EKG. Echo pending. (4) Tobacco use: Code(s): Z72.0 - Tobacco use Status: Acute Assessment and Plan: Smoking cessation always encouraged. Once again counseled performed at length. Patient did not seem interested in quitting. (5) Epigastric discomfort: Code(s): R10.13 - Epigastric pain Status: Acute Assessment and Plan: Resolved. Probably unrelated to the above problems. PPI. Subjective Date/time seen: Date of service: 11/03/20 11:31 Follow-up for atrial tachycardia status post termination with adenosine Maintaining sinus rhythm. No recurrence overnight. Patient complained of headache. Wants a cigarette and coffee. Wants to go home. Denies chest pain or shortness of breath. No dizziness. States echocardiogram was done this morning but not uploaded at time of writing. Review of Systems Review of Systems: All systems reviewed & are unremarkable except as noted in HPI and below Constitutional: Constitutional: Reports as per HPI, Reports no additional constitutional complaints and Denies weakness Eyes: Eyes: Reports as per HPI and Reports no additional eye complaints ENT: Reports as per HPI and Denies nasal congestion Cardiovascular: Cardiovascular: Reports as per HPI, Denies chest pain, Denies lightheadedness, Denies palpitations, Reports dyspnea and Reports dyspnea on exertion Respiratory: Respiratory: Reports as per HPI, Denies cough, Denies dyspnea and Denies dyspnea on exertion Gastrointestinal: Gastrointestinal: Reports as per HPI and Denies abdominal pain Genitourinary: Genitourinary: Reports as per HPI and Denies hematuria Musculoskeletal: Musculoskeletal: Reports as per HPI and Reports back pain Integumentary/Breasts: Skin/Breast: Reports as per HPI and Denies rash Neurologic: Reports as per HPI, Denies behavioral changes, Denies confusion and Reports headache(s) Psychiatric: Psychiatric: Reports as per HPI, Denies anxiety, Denies behavioral changes and Denies confusion Endocrine: Endocrine: Reports as per HPI and Denies palpitations Hematologic/Lymphatic: Hematologic/Lymphatic: Reports as per HPI Allergic/Immunologic: Allergic/Immunologic: Reports as per HPI Exam Narrative: Pleasant young woman in no distress Const: General: comfortable and no acute distress; No confusion Orientation/consciousness: No confusion HENMT: General nose exam: no epistaxis Mouth: Yes moist mucous membranes Eyes: EOM: EOMs intact bilaterally Neck: Neck: supple and no JVD Thyroid: thy
[2020-11-03] MEDS: HYDROcodone/acetaminophen (*CRX) 10-325 MG TABLET 1 TAB PO ×2 (12:08→15:56)
[2020-11-03] MEDS: PANTOPRAZOLE SODIUM IV 40 MG VIAL IV PUSH (12:09)
--- NOTE | 2020-11-03 15:30 | PM.DS ---
DS: Admitting Diagnosis Admitting Diagnosis Chest pain DS: Discharge Diagnosis Discharge Diagnosis (1) Tachycardia: Code(s): R00.0 - Tachycardia, unspecified Status: Acute Assessment and Plan: Patient is a 50-year-old woman with a history of anxiety, dyslipidemia, chronic back pain, who presents emergency room with symptoms of chest tightness and shortness of breath. Patient has had intermittent episodes of palpitations mostly at night when trying to go to sleep. Usually the symptoms would resolve on its own but this episode did not. Prior to arrival she was at work and was not feeling well with chest discomfort and intermittent radiation of pain into her arm. In the emergency department she was found to be tachycardic in the 120s to 130s pretty consistently. TSH as well as CTA of the chest were unremarkable. Dr. Wells has seen the patient and after noting the absence of P waves on EKG, she elected to try adenosine which restored the patient to a sinus rhythm. Patient was started on verapamil and remained in normal sinus rhythm overnight. She has not had any recurrence of symptoms, chest pain. Echocardiogram showed normal EF 55-60%, no LVH, normal diastolic function. The patient is feeling well this time cardiology states she can be discharged home to follow-up with Dr. Wells in the next few weeks after discharge for further evaluation, discussion about continue medical therapy and/or ablation by an traffic monitor specialist. -while doing the patient's discharge medications there was a contraindication for Verapamil and the patient's Xanax which is 1 mg scheduled t.i.d.. I talked to Dr. Mitchell who recommended switching to metoprolol tartrate 25 mg q.12 hours. The patient was placed on this upon discharge and verapamil was discontinued. Return to ER warnings given. Follow-up instructions given. Smoking sensation given. Patient understands and agrees with plan all questions answered. (2) Elevated brain natriuretic peptide (BNP) level: Code(s): R79.89 - Other specified abnormal findings of blood chemistry Status: Acute Assessment and Plan: Most likely from tachycardia (3) Chest tightness: Code(s): R07.89 - Other chest pain Status: Acute Assessment and Plan: Likely related to tachycardia. No ST segment changes on EKG. (4) Epigastric discomfort: Code(s): R10.13 - Epigastric pain Status: Acute Assessment and Plan: Patient states her primary care told her to take omeprazole for 5 days for her heartburn. She has not been able to take this due to everything going on. While she was here she was given pantoprazole. I told her to continue taking this and Tums as needed for 2 weeks and it should improve her symptoms. Continue follow with primary care provider for further evaluation monitoring. (5) Tobacco use: Code(s): Z72.0 - Tobacco use Status: Acute Assessment and Plan: Smoking cessation is encouraged. DS: Summary Hospital Course Hospital Course: See above Status at Discharge Cognitive/behavioral status at discharge: Stable, improved. Time Spent with Patient Time attestation: Total time spent providing and/or coordinating discharge services: 42 Time spent: Greater than 30 minutes Exam Narrative: General: 50-year-old woman sitting up in bed. Appears comfortable. In no acute distress. Skin: No jaundice or cyanosis. Good skin turgor. Neck: Full range of motion. Supple. Respiratory: Lungs are clear to auscultation bilaterally. No bony chest wall tenderness. Cardiovascular: The heart has a regular rate and rhythm without murmur. Lower extremities: No lower extremity edema. Distal pulses are easily palpated. No calf tenderness to palpation. Gastrointestinal: The abdomen is soft, nontender and nondistended with active bowel sounds. Psychiatric: Lucid and oriented. Memory intact. Neurologic: No focal deficits. S
== END 2020-11-03 16:05 | disposition home or self-care (01) ==
LOC: ANHED 09:24 → ANHIMU 15:14
PROVIDERS: Physician Assistant; Admitting Provider Family Medicine; Emergency Provider Emergency Medicine; PCP Internal Medicine; Visit Provider Internal Medicine Critical Care Medicine
DX: R00.0 Tachycardia, unspecified (principal); R07.89 Other chest pain; R06.02 Shortness of breath; E78.5 Hyperlipidemia, unspecified; F17.210 Nicotine dependence, cigarettes, uncomplicated; R79.89 Other specified abnormal findings of blood chemistry; R10.13 Epigastric pain
CPT/HCPCS: 36415; 71046; 71275; 74177; 80048; 80053; 80076; 81001; 83605; 83690; 83735; 83880; 84443; 84484; 85025; 85610; 85730; 87040; 93005; 93306; 96361; 96374; 96375; 99285; A9270; C9113; G0378; J0131; J0153; J2270; J2405; J7030; Q9967

== ENCOUNTER → 2020-12-08 09:38 | Outpatient (CLI) | payer OTHER, MEDICAID, SELFPAY ==
[2020-12-08 18:26] LABS: SARS-CoV-2 RNA PCR Negative
== END ==
PROVIDERS: PCP Internal Medicine; Visit Provider Internal Medicine
DX: R68.89 Other general symptoms and signs (principal); Z20.822 Contact with and (suspected) exposure to COVID-19
CPT/HCPCS: C9803; U0003; U0005

== ENCOUNTER 2020-12-09 12:26 | Emergency (ER) | payer OTHER, MEDICAID, SELFPAY ==
--- NOTE | ~2020-12-09 | XR_ITS ---
EXAMINATION: XR chest 2V EXAM DATE: 12/09/2020 13:20 INDICATION: prod cough x 8 days. TECHNIQUE: Frontal and lateral projections of the chest obtained and reviewed. Comparison is made to prior examination from 11/02/2020. FINDINGS: The lungs are clear. There are no pleural effusions. The cardiomediastinal silhouette is within normal limits. There is no pneumothorax suspected. The bones and soft tissues are unremarkab le. IMPRESSION: Unremarkable chest x-ray exam. Reviewed, dictated and finalized at location A.
[2020-12-09 12:34] VITALS: BP 102/63; PULSE 92; RESP 16; TEMP 36.8; O2SAT 99
--- NOTE | 2020-12-09 12:49 | ED.GENADULT ---
HPI - General Adult General Chief complaint: Upper Respiratory Infection Stated complaint: sore throat/congestion Time Seen by Provider: 12/09/20 12:49 Source: patient Mode of arrival: ambulatory Limitations: no limitations History of Present Illness HPI narrative: 50-year-old female patient presents to the [facility] with complaints of sore throat, runny nose, congestion, and cough and some shortness of breath with exertion going on for the past 8 days. Patient states she gets sinus infections often due to the fact that she has an active smoker. 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 Patient states she was swabbed for Covid yesterday and came back negative. Patient is fully vaccinated. Related Data Home Medications Medication Instructions Recorded Confirmed fluticasone propionate 50 1 spray INTRANASAL DAILY PRN 09/20/20 12/09/20 mcg/actuation nasal spray,suspension albuterol sulfate [Ventolin HFA] See Rx Instructions .ROUTE 11/02/20 12/09/20 .COMPLEX PRN alprazolam 1 mg PO TID 11/02/20 12/09/20 trazodone 150 mg PO HS 11/02/20 12/09/20 Allergies Allergy/AdvReac Type Severity Reaction Status Date / Time Ozvtecb-Byf-Qam Reductase AdvReac Intermediate Muscle Verified 12/09/20 13:36 Inhibitor cramps/pain Review of Systems Review of Systems: CONSTITUTIONAL: Denies fever, chills, or sweats. EYES: Denies visual changes, redness, or discharge. ENT: Positive rhinorrhea, congestion, sore throat, and bilateral otalgia. CARDIOVASCULAR: Denies chest pain, palpitations, or edema. RESPIRATORY: Positive cough with dyspnea on exertion. GASTROINTESTINAL: Denies abdominal pain, nausea, vomiting, or diarrhea. GENITOURINARY: Denies dysuria or hematuria. SKIN: Denies rash or itching. MUSCULOSKELETAL: Denies back pain, joint pain, or myalgia. NEUROLOGIC: Positive headache, denies numbness, or weakness. PSYCHIATRIC: Denies anxiety or depression. [facility] Past Medical History Medical History Arthritis Chronic back pain Kidney stones Tobacco use Surgical History Surgical History History of endometrial ablation History of tubal ligation Family History Family History Mother Family history of malignant neoplasm Lymphoma Father Patient's father is Estranged from father does not know his past history Sibling Thyroid cancer Other Heart disease Grandmother of heart failure Other Family history of malignant neoplasm of breast Social History Social History Social History: , just got her daughter off to [facility], 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 No significant alcohol use. No illicit substance use. Code status: Full code. Smoking packs per day: 0.5 Smoking cigarettes per day: 10.0 Years smoked: 30 Smoking pack-years: 15.00 Smoking status: Current every day smoker Tobacco type: cigarettes Second hand tobacco smoke exposure: Yes Alcohol intake: never Substance use: never Spiritual care concerns: No Exam Narrative: GENERAL: Well-appearing, well-nourished, and in no acute distress. HEAD: Normocephalic, atraumatic. EYES: PERRLA and EOMI. ENT: Nares with erythema and edema noted to the left nare, no rhinorrhea or epistaxis. Mucous membranes moist. Posterior pharynx with erythema but no tonsil swelling noted no exudates or lesions present. Bilateral TMs are clear with no erythema or foreign bodies to the canal. NECK: Supple. No lymphadenopathy CHEST: Patient has inspiratory wheezing and decreased lung sounds noted on expiration to the right upper and lower lobe. No respiratory distress. HEART: Regular rate and rhythm. No murmur heard. Normal peripheral pulses. ABDOMEN: Soft, nontender, nondistended, normal active bowel s
[2020-12-09] MEDS: IPRATROPIUM BR 0.02% INH SOLN 0.5 MG/2.5 ML VIAL INHALATION (13:26)
[2020-12-09] MEDS: ALBUTEROL SULFATE NEB 2.5 MG/3 ML INH INHALATION (13:27)
== END 2020-12-09 14:14 | disposition home or self-care (01) ==
PROVIDERS: Emergency Provider Nurse Practitioner Family; PCP Internal Medicine
DX: J06.9 Acute upper respiratory infection, unspecified (principal); F17.210 Nicotine dependence, cigarettes, uncomplicated
CPT/HCPCS: 71046; 87081; 87880; 94640; 99213; G0463

== ENCOUNTER → 2021-04-13 02:43 | Outpatient (CLI) | payer OTHER, MEDICAID, SELFPAY ==
[2021-04-13 13:20] LABS: Influenza A QL RT-PCR Negative (Negative); Influenza B QL RT-PCR Negative (Negative); SARS-CoV-2 RNA PCR Negative
== END ==
PROVIDERS: PCP Internal Medicine; Visit Provider Nurse Practitioner
DX: R68.89 Other general symptoms and signs (principal); Z20.822 Contact with and (suspected) exposure to COVID-19
CPT/HCPCS: 87502; C9803; U0003; U0005

== ENCOUNTER 2021-09-25 15:00 | Outpatient (RCR) | payer OTHER, MEDICAID, SELFPAY ==
--- NOTE | 2021-08-30 08:49 | PTOPEVAL ---
PHYSICAL THERAPY EVALUATION AND PLAN OF CARE 08-30-21 Thank you for referring Slime Ramirez to [facility] for the diagnosis of neck pain and headaches, s/p fall. ?She is scheduled to be seen for therapy? 2 x/week for 4 weeks. Please review, sign, date and return this plan of care ASHLEY. I agree with and certify that the following plan of care is medically necessary. Referring Physician Date Attending Provider: ZEB YeungC Past Medical History Source of Past Medical History Recalled from Previous Visit, Confirmed with Patient/Family Neurological History Hx Neurological Disorders No Significant History Cardiovascular History Hx Hypercholesterolemia Yes: meds Respiratory History Hx Asthma Yes Gastrointestinal History Hx Gastroesophageal Reflux Disease Yes Genitourinary History Hx Kidney Stones Yes Musculoskeletal History Hx Arthritis Yes: low back Hx Back Pain Yes: chronic back pain Hx Other Musculoskeletal Disorders Yes: hands go numb- ? carpal tunnel from work and use of arms Hematological History Hx Hematological Disorders No Significant History Endocrine History Hx Endocrine Disorders No Significant History HEENT History Hx HEENT Disorders No Significant History Integumentary History Hx Skin Disorders No Significant History Reproductive History Hx Post Menopausal Yes Hx Tubal Ligation Yes Hx Other Reproductive Disorders Yes: ablation Psychosocial History Hx Anxiety Yes Pain History History of Long-Term Prescription Pain Yes: hydrocodone 10-325mg BID Medication Use (Opiates) Anesthesia History Hx Anesthesia Reactions No Significant History Evaluation Information Diagnosis post traumatic headache, injury to head Onset 08-10-21 Subjective Information 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
--- NOTE | 2021-09-03 14:36 | PCPTNOTE ---
Patient called & cancelled scheduled appointment this date, she did not leave a reason.
--- NOTE | 2021-09-06 13:14 | PCPTNOTE ---
Patient canceled appointment per request.
--- NOTE | 2021-09-20 15:46 | PCPTNOTE ---
Patient called to cancel this date due to having to her daughter going to labor.
--- NOTE | 2021-09-27 16:24 | PCPTNOTE ---
pt called and canceled today's reeval due to her daughter having a baby and in the hospital. Stated she is returning to work next week and wants to hold on any therapy due to busy with working and getting back into the work routine ; she will call if she has any concerns in the next few weeks or needs to return to therapy. Discussed with her to continue exercises, watch posture and if over a few weeks time, will need a new dr order to return to therapy.
--- NOTE | 2021-11-12 13:17 | PTOPDC ---
Evaluation Information Assessment Status Evaluation Attending Provider: Bola Raines DO Patient:Slime Ramirez Date of :1970 [place] has not returned for any further treatments since 09/25/2021, therefore she will be discharged at this time. She has received 6 PT sessions, from August 30 to September 25, for the diagnosis of headaches and neck pain. She called and canceled 4 appointments. On 09/27/21 she called stating she has returned to work and needs to cancel all of her remaining appointments. The goals were not assessed. Thank you for referring Ms. Ramirez to [facility]. Please review, sign, date and return this discharge summary ASHLEY. I have been updated about the patient's current status and I agree with discharge from the above service at this time. Referring Physician Date
== END 2021-11-12 14:03 | disposition home or self-care (01) ==
LOC: ANHPT 15:00
PROVIDERS: PCP Internal Medicine; Visit Provider Internal Medicine
DX: G44.309 Post-traumatic headache, unspecified, not intractable (principal); S09.90XS Unspecified injury of head, sequela
CPT/HCPCS: 97014; 97110; 97140; 97161; G0283

== ENCOUNTER 2021-11-21 07:57 | Emergency (ER) | payer OTHER, MEDICAID, SELFPAY ==
--- NOTE | ~2021-11-21 | CT_ITS ---
EXAMINATION: CT brain wo con DATE: 11/21/2021 08:24 INDICATION: Fall. Laceration to back of the head. Neck pain. TECHNIQUE: Computed tomography (CT) of the head was performed without intravenous contrast. The mA wa s adjusted according to patient size. Iterative reconstruction technique was employed. Exam dose: 19 1.52 mGy-cm total exam DLP. COMPARISON: None FINDINGS: No intracranial mass lesion or hemorrhage or cerebrovascular accident. No midline shift or mass effect effect. Normal ventricular size. Normal miramontes-white matter differentiation. No subdural or epidural hematoma. No fracture or bone destruction of the cranial vault. IMPRESSION: Negative examination Reviewed, dictated and finalized at [facility]. Reviewed, dictated and finalized at location [facility]. IMPRESSION: Negative examination
--- NOTE | ~2021-11-21 | CT_ITS ---
EXAMINATION: CT cervical spine wo con DATE: 11/21/2021 08:24 INDICATION: Neck pain after fall TECHNIQUE: Computed tomography (CT) of the cervical spine was performed without intravenous contrast. Automated exposure control and iterative reconstruction technique were employed. Exam dose: 605.33 mGy-cm total exam DLP. COMPARISON: None FINDINGS: There is moderate degenerative disc disease and prominent posterior spurring at C5-6, with degenerative spurring at the C5-6 uncovertebral joints. C1 and C2 are normally aligned and the odontoid process is intact. No fracture or dislocation or lock ed facet. No prevertebral soft tissue swelling.. IMPRESSION: No fracture, dislocation or locked facet Degenerative disc disease and degenerative spurring of the uncovertebral joints at C5-6 Reviewed, dictated and finalized at [facility]. Reviewed, dictated and finalized at [facility].
[2021-11-21 08:05] VITALS: BP 97/67; PULSE 55; RESP 16; TEMP 36.1; O2SAT 98
--- NOTE | 2021-11-21 08:13 | ED.GENADULT ---
HPI - General Adult General Chief complaint: Head Injury Stated complaint: dogs knocked pt down, back of head injury Time Seen by Provider: 11/21/21 07:59 History of Present Illness HPI narrative: 51-year-old female presenting to the emergency department for evaluation after sustaining a head injury. Patient states she was walking her dog when the dog became startled causing her to get hold ultimately falling and striking her head. Patient denies any loss of consciousness but did receive a laceration to the top of her scalp. Bleeding was controlled upon arrival to the emergency department. Patient states she does have some neck pain. Patient reports she does have chronic neck pain. Patient denies any associated numbness or weakness. Related Data Allergies Allergy/AdvReac Type Severity Reaction Status Date / Time Qoqtwfw-MDY-AhV Reductase AdvReac Intermediate Muscle Verified 09/27/21 07:20 Inhibitor cramps/pain [Sjvqgnh-Enn-Xld Reductase Inhibitor] Review of Systems Review of Systems: CONSTITUTIONAL: Denies fever, chills, or sweats. EYES: Denies visual changes, redness, or discharge. ENT: Denies rhinorrhea, congestion, sore throat, or otalgia. CARDIOVASCULAR: Denies chest pain, palpitations, or edema. RESPIRATORY: Denies cough or dyspnea. GASTROINTESTINAL: Denies abdominal pain, nausea, vomiting, or diarrhea. GENITOURINARY: Denies dysuria or hematuria. SKIN: Scalp laceration MUSCULOSKELETAL: Denies back pain, joint pain, or myalgia. NEUROLOGIC: Denies headache, numbness, or weakness. FOR[facility]LY [facility] Past Medical History Medical History Arthritis Chronic back pain Kidney stones Tobacco use Surgical History Surgical History History of endometrial ablation History of tubal ligation Family History Family History Mother Family history of malignant neoplasm Lymphoma Father Patient's father is Estranged from father does not know his past history Sibling Thyroid cancer Other Heart disease Grandmother of heart failure Other Family history of malignant neoplasm of breast Social History Social History Social History: , just got her daughter off to [facility], 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 No significant alcohol use. No illicit substance use. Code status: Full code. Smoking packs per day: 0.5 Smoking cigarettes per day: 10.0 Years smoked: 30 Smoking pack-years: 15.00 Smoking status: Current every day smoker Tobacco type: cigarettes Second hand tobacco smoke exposure: Yes Alcohol intake: never Substance use: never Substance use type: does not use Spiritual care concerns: No Exam Narrative: APPEARANCE: Well appearing, no pain, no distress, well-nourished. HEAD: normocephalic, atraumatic. EYES: PERRLA/EOMI, conjunctivae clear. NOSE: Normal no drainage EARS:TMS clear with good light reflex. THROAT: Pharynx clear, no exudate. NECK: Supple. No adenopathy, no masses. RESPIRATORY: Airway patent, respirations nonlabored. Clear to auscultation bilaterally, no rales, rhonchi, wheezing. CARDIOVASCULAR: Regular rate and rhythm without murmurs rubs or gallops. ABDOMINAL: Soft, nontender, nondistended, normal bowel sounds MUSCULOSKELETAL: Moves all extremities. Strength/ROM intact, No edema, No calf tenderness. NEURO: Alert. Cranial nerves II through XII intact. Good gait. Good coordination SKIN: Warm, dry. Normal Color. 1 cm scalp laceration Course Course Emergency Course: Patient declined stapling of the laceration. Laceration was closed using Dermabond and hair approximation. Patient was encouraged to have close follow-up with her primary care physician. Vital Signs Vital signs: Vital Signs Temper
[2021-11-21] MEDS: TETANUS,DIPHTHERIA,AC PERTUSSIS ADULT (0.5 ML) BOOSTRIX IM (09:10)
== END 2021-11-21 09:20 | disposition home or self-care (01) ==
PROVIDERS: Emergency Provider Emergency Medicine; PCP Internal Medicine
DX: S01.01XA Laceration without foreign body of scalp, initial encounter (principal); Z23 Encounter for immunization; M19.90 Unspecified osteoarthritis, unspecified site; Z87.442 Personal history of urinary calculi; F17.210 Nicotine dependence, cigarettes, uncomplicated; M50.322 Other cervical disc degeneration at C5-C6 level; Y93.K1 Activity, walking an animal; W18.39XA Other fall on same level, initial encounter
CPT/HCPCS: 12001; 70450; 72125; 90471; 90715; 99284

== ENCOUNTER 2021-11-22 11:04 | Outpatient (CLI) | payer OTHER, MEDICAID, SELFPAY ==
--- NOTE | ~2021-11-22 | XR_ITS ---
EXAMINATION: XR hip LT min 2V INDICATION: Left hip pain TECHNIQUE: Two views of the left hip are obtained. COMPARISON: 05/04/2013 FINDINGS: Bone alignment is normal. There is no fracture. The soft tissues are unremarkable. Tubal li gation clips are noted. IMPRESSION: 1. No acute osseous abnormality. Reviewed, dictated and finalized at location [facility].
== END 2021-11-22 11:05 | disposition home or self-care (01) ==
PROVIDERS: PCP Internal Medicine; Visit Provider Internal Medicine
DX: M25.552 Pain in left hip (principal)
CPT/HCPCS: 73502

== ENCOUNTER → 2021-12-07 01:46 | Outpatient (CLI) | payer OTHER, MEDICAID, SELFPAY ==
[2021-12-07 11:57] LABS: SARS-CoV-2 RNA PCR Negative
== END ==
PROVIDERS: PCP Internal Medicine; Visit Provider Internal Medicine
DX: Z20.822 Contact with and (suspected) exposure to COVID-19 (principal)
CPT/HCPCS: C9803; U0003; U0005

== ENCOUNTER 2021-12-19 08:53 | Emergency (ER) | payer OTHER, MEDICAID, SELFPAY ==
--- NOTE | 2021-12-19 08:56 | ED.URI ---
HPI - URI/Sore Throat General Chief Complaint: Upper Respiratory Infection Stated Complaint: uri Time Seen by Provider: 12/19/21 09:28 Source: patient and RN notes reviewed Mode of arrival: ambulatory Limitations: no limitations History of Present Illness HPI Narrative: 51-year-old female presents concern for 1-1/2-week history of sinus congestion, pressure, pain, facial swelling, cough, body aches, fatigue. She reports her granddaughter tested positive for COVID last week, she was tested for COVID and tested negative. She reports she has been taking lqvv-tmp-nbhoklh medications without relief. MD elicited complaint: cough, nasal congestion and sinus pain Related Data Allergies Allergy/AdvReac Type Severity Reaction Status Date / Time Itsoerq-KDT-LvF Reductase AdvReac Intermediate Muscle Verified 12/19/21 09:10 Inhibitor cramps/pain [Eqmlwhv-Ynv-Hpk Reductase Inhibitor] Review of Systems Review of Systems: CONSTITUTIONAL: Reports malaise. Denies she chills, sweats, or fever. EYES: Denies visual changes, redness, or discharge. ENT: Reports rhinorrhea, congestion, sinus pain, otalgia. Denies sore throat. CARDIOVASCULAR: Denies chest pain, palpitations, or edema. RESPIRATORY: Reports cough. Denies dyspnea. GASTROINTESTINAL: Denies abdominal pain, nausea, vomiting, diarrhea SKIN: Denies rash or itching. MUSCULOSKELETAL: Reports myalgia. NEUROLOGIC: Denies headache. All systems reviewed & are unremarkable except as noted in HPI and below PMFSH Past Medical History Medical History Arthritis Chronic back pain Kidney stones Tobacco use Surgical History Surgical History History of endometrial ablation History of tubal ligation Family History Family History Mother Family history of malignant neoplasm Lymphoma Father Patient's father is Estranged from father does not know his past history Sibling Thyroid cancer Other Heart disease Grandmother of heart failure Other Family history of malignant neoplasm of breast Social History Social History Social History: , just got her daughter off to [facility], 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 No significant alcohol use. No illicit substance use. Code status: Full code. Smoking packs per day: 0.5 Smoking cigarettes per day: 10.0 Years smoked: 30 Smoking pack-years: 15.00 Smoking status: Current every day smoker Tobacco type: cigarettes Second hand tobacco smoke exposure: Yes Alcohol intake: never Substance use: never Substance use type: does not use Spiritual care concerns: No Comments At time of signature, agree with nursing past medical, surgical, social and family history. There is no relevant family history pertinent to the presenting complaint Exam Narrative: GENERAL: Nontoxic appearing and in no acute distress. HEAD: Normocephalic EYES: PERRLA, conjunctivae clear ENT: Nares clear, turbinates edematous and erythematous, sinus tenderness. Mucous membranes moist. TM pearly miramontes with dull light reflex bilaterally; no tragal tenderness. Oropharynx not erythematous without lesions. Tonsils not enlarged and without exudate, no drooling, no hoarseness, no trismus, uvula midline. NECK: Supple. No lymphadenopathy CHEST: Clear to auscultation, breath sounds equal. No wheezing, rhonchi, rales, or stridor. No respiratory distress, speaks in full sentences. HEART: Regular rate and rhythm. No murmur heard. SKIN: Warm, dry, no rash. NEURO: Alert and oriented x3. PSYCH: Normal mood and affect Course Course Emergency Course: Patient is aware of diagnosis, understands and agrees to treatment plan. Anticipatory guidance given. Patient agrees to follow-up as di
[2021-12-19 09:05] VITALS: BP 110/70; PULSE 89; RESP 18; TEMP 36.3; O2SAT 100
== END 2021-12-19 09:43 | disposition home or self-care (01) ==
PROVIDERS: Emergency Provider Nurse Practitioner; PCP Internal Medicine
DX: J32.9 Chronic sinusitis, unspecified (principal); J40 Bronchitis, not specified as acute or chronic; Z20.822 Contact with and (suspected) exposure to COVID-19; F17.210 Nicotine dependence, cigarettes, uncomplicated; M19.90 Unspecified osteoarthritis, unspecified site
CPT/HCPCS: 87081; 87426; 87804; 87880; 99213; C9803; G0463

== ENCOUNTER 2022-03-01 12:30 | Emergency (ER) | payer OTHER, MEDICAID, SELFPAY ==
--- NOTE | 2022-03-01 12:33 | ED.URI ---
HPI - URI/Sore Throat General Chief Complaint: Upper Respiratory Infection Stated Complaint: SOB,Cough,Headache Time Seen by Provider: 03/01/22 12:33 Source: patient Mode of arrival: ambulatory Limitations: no limitations History of Present Illness HPI Narrative: Sanaz is a 51-year-old female patient presenting to clinic today with complaints of shortness of breath, cough, headache, nasal congestion, fatigue, and sinus pressure since Friday. She contacted her PCP and was given a prescription for Augmentin on Friday, was seen by herher PCP on Friday and he gave her a prescription for prednisolone. She reports that she is not feeling any better after 24 hours of being on the steroid so she decided to come in to the [facility] to be evaluated today. She denies any fever or chills. She tried taking at home COVID test however she thinks that she may have not completed it correctly. States her PCP was treating her for a sinus infection MD elicited complaint: cough, rhinorrhea, nasal congestion and sinus pain Related Data Home Medications Medication Instructions Recorded Confirmed fexofenadine-pseudoephedrine ER 1 tablet PO DIRECTED 03/01/22 03/01/22 180 mg-240 mg tablet,ext.release 24 hr (Vanessa-D 24 Hour) Allergies Allergy/AdvReac Type Severity Reaction Status Date / Time Vgkahol-ESU-PhV Reductase AdvReac Intermediate Muscle Verified 02/28/22 07:41 Inhibitor cramps/pain [Eszghgm-Got-Tvf Reductase Inhibitor] Review of Systems Review of Systems: Pertinent positives per HPI. Patient denies any fever, chills, rash, headache, visual changes, dizziness,chest pain, palpitations, nausea, vomiting, diarrhea, constipation, abdominal pain, or any urinary issues. [facility] Past Medical History Medical History Arthritis Chronic back pain Kidney stones Tobacco use Surgical History Surgical History History of endometrial ablation History of tubal ligation Family History Family History Mother Family history of malignant neoplasm Lymphoma Father Patient's father is Estranged from father does not know his past history Sibling Thyroid cancer Other Heart disease Grandmother of heart failure Other Family history of malignant neoplasm of breast Social History Social History Social History: , just got her daughter off to [facility], 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 No significant alcohol use. No illicit substance use. Code status: Full code. Smoking packs per day: 0.5 Smoking cigarettes per day: 10.0 Years smoked: 30 Smoking pack-years: 15.00 Smoking status: Current every day smoker Tobacco type: cigarettes Second hand tobacco smoke exposure: Yes Alcohol intake: never Substance use: never Substance use type: does not use Lack of Transportation: No Lack of Food: Never True Current Housing: I Have Housing Concerned About Future Housing: No Difficulty Paying Gas/Electric Bills: No Difficulty Paying for Meds: No Currently Unemployed: No Education: Grade School Difficulty w/ Childcare or Family Care: No Spiritual care concerns: No Comments At the time of my signature, I reviewed and agree with the nursing past medical, surgical, social, and family history. There is no relevant family history pertinent to the patient complaint. Exam Narrative: General: Well-developed, overweight, in no apparent distress Head: Normocephalic, atraumatic Eyes: Pupils equally round and reactive to light bilaterally, EOM intact, sclera and conjunctive clear, no discharge, lids normal Ears: TMs intact and clear, ear canals clear, no drainage, grossly hearing normal. Nose: Nares
[2022-03-01 12:41] VITALS: BP 129/71; PULSE 102; RESP 18; TEMP 36.6; O2SAT 99
== END 2022-03-01 13:33 | disposition home or self-care (01) ==
PROVIDERS: Emergency Provider Nurse Practitioner Family; PCP Internal Medicine
DX: J20.8 Acute bronchitis due to other specified organisms (principal); J06.9 Acute upper respiratory infection, unspecified; F17.210 Nicotine dependence, cigarettes, uncomplicated; Z20.822 Contact with and (suspected) exposure to COVID-19
CPT/HCPCS: 87426; 87804; 99213; C9803; G0463

== ENCOUNTER 2022-04-20 10:42 | Emergency (ER) | payer OTHER, MEDICAID, SELFPAY ==
[2022-04-20 10:56] VITALS: BP 126/79; PULSE 78; RESP 20; TEMP 36.8; O2SAT 99
--- NOTE | 2022-04-20 11:03 | ED.URI ---
HPI - URI/Sore Throat General Chief Complaint: Upper Respiratory Infection Stated Complaint: Sore Throat/Bodyaches/Cough Source: patient and RN notes reviewed Mode of arrival: ambulatory Limitations: no limitations History of Present Illness HPI Narrative: 51 y/o female presented for c/o cough for over one month. Endorses body aches, headache, sinus congestion and pressure for about 3 days. Cough is productive white sputum. Endoreses increased sob and occasional wheezing. Patient completed course of steroids about 3 days ago, as prescribed by pcp. States she has not informed the pcp the cough has not improved as instructed. Patient is a daily smoker <1PPD. Using albuterol when sob/wheezing. MD elicited complaint: cough Related Data Home Medications Medication Instructions Recorded Confirmed benzonatate 200 mg capsule 200 mg PO ONCE cough 04/12/22 04/20/22 fexofenadine-pseudoephedrine ER 1 tablet PO DIRECTED 04/12/22 04/20/22 180 mg-240 mg tablet,ext.release 24 hr (Vanessa-D 24 Hour) fluticasone propionate 50 2 spray intranasal DAILY PRN 04/12/22 04/20/22 mcg/actuation nasal Congestion spray,suspension omeprazole 40 mg capsule,delayed 40 mg PO DAILY 04/12/22 04/20/22 release Allergies Allergy/AdvReac Type Severity Reaction Status Date / Time Hhxfbme-VYV-MfZ Reductase AdvReac Intermediate Muscle Verified 04/20/22 10:50 Inhibitor cramps/pain [Mrmsbly-Urt-Ngf Reductase Inhibitor] Review of Systems Review of Systems: CONSTITUTIONAL: Endorses malaise, Denies chills, sweats, fever EYES: Denies visual changes, redness, or discharge ENT: Reports rhinorrhea, congestion, sinus pain, otalgia, sore throat CARDIOVASCULAR: Denies chest pain, palpitations, edema RESPIRATORY: per HPI GASTROINTESTINAL: Denies abdominal pain, nausea, vomiting, diarrhea SKIN: Denies rash or itching MUSCULOSKELETAL: Endorses myalgia PMFSH Past Medical History Medical History Arthritis Chronic back pain Kidney stones Tobacco use Surgical History Surgical History History of endometrial ablation History of tubal ligation Family History Family History Mother Family history of malignant neoplasm Lymphoma Father Patient's father is Estranged from father does not know his past history Sibling Thyroid cancer Other Heart disease Grandmother of heart failure Other Family history of malignant neoplasm of breast Social History Social History Social History: , just got her daughter off to [facility], 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 No significant alcohol use. No illicit substance use. Code status: Full code. Smoking packs per day: 0.5 Smoking cigarettes per day: 10.0 Years smoked: 30 Smoking pack-years: 15.00 Smoking status: Current every day smoker Tobacco type: cigarettes Second hand tobacco smoke exposure: Yes Alcohol intake: never Substance use: never Substance use type: does not use Lack of Transportation: No Lack of Food: Never True Current Housing: I Have Housing Concerned About Future Housing: No Difficulty Paying Gas/Electric Bills: No Difficulty Paying for Meds: No Currently Unemployed: No Education: Grade School Difficulty w/ Childcare or Family Care: No Spiritual care concerns: No Exam Narrative: GENERAL: Ill-appearing, nontoxic EYES: conjunctivae clear ENT: Mucous membranes moist. TMs pearly miramontes with dull light reflex bilaterally; no tragal tenderness. Oropharynx erythematous without lesions or exudate, no drooling, no hoarseness, no trismus, uvula midline. No tripod positioning, muffled voice, soft palate or pharyngeal wall bulging NECK: Supple. No lymphaden
== END 2022-04-20 11:25 | disposition home or self-care (01) ==
PROVIDERS: Emergency Provider Nurse Practitioner Family; PCP Internal Medicine
DX: J22 Unspecified acute lower respiratory infection (principal); F17.210 Nicotine dependence, cigarettes, uncomplicated; Z20.822 Contact with and (suspected) exposure to COVID-19
CPT/HCPCS: 87081; 87426; 87804; 87880; 99213; C9803; G0463

== ENCOUNTER 2022-05-17 11:17 | Emergency (ER) | payer OTHER, MEDICAID, SELFPAY ==
--- NOTE | ~2022-05-17 | XR_ITS ---
Right Hand Technique: PA, oblique, and lateral views were obtained. Clinical History: Ulnar-sided pain Findings: No definite acute fracture or dislocation is seen. Questionable abnormal density at the bas e the fourth metacarpal, indeterminate. Osseous alignment is anatomic. Joint spaces are preserved. So ft tissues are unremarkable. Impression: Questionable abnormal density at the base of the fourth metacarpal, indeterminate, best seen on PA pr ojection. Correlate for point tenderness. Consider additional workup there is felt to be focal abnorm alities region. No definite fracture evident. Reviewed, dictated and finalized at location [facility]. EMS SUPPORT SPECIALIST Impression: Questionable abnormal density at the base of the fourth metacarpal, indetermina te, best seen on PA projection. Correlate for point tenderness. Consider additi onal workup there is felt to be focal abnormalities region. No definite fractur e evident.
[2022-05-17 11:25] VITALS: BP 108/76; PULSE 87; RESP 16; TEMP 36.7; O2SAT 99
--- NOTE | 2022-05-17 11:36 | ED.UPPEXIN ---
HPI - Extremity Injury (Upper) General Chief Complaint: Extremity Injury, Upper Stated Complaint: right hand injury Time Seen by Provider: 05/17/22 11:36 Source: patient Mode of arrival: ambulatory Limitations: no limitations History of Present Illness HPI narrative: 52-year-old female presents with complaint pain to right hand with abrasion. Fell 2 days ago while out walking her dog. States that her right hand hit the curb. Is concerned that abrasion to right hand is infected or is going to become infected. Reports that she has been cleaning it with hydrogen peroxide. States that she has full range of motion to right and. Is not concerned for fracture. Does not want any wound care. States she has pain days and Aashish wrap at home. Reports she is just here for a antibiotic and a work note. Distal neurovascularly intact. All systems reviewed and negative except as noted above. Related Data Home Medications Medication Instructions Recorded Confirmed benzonatate 200 mg capsule 200 mg PO ONCE cough 04/12/22 05/17/22 fexofenadine-pseudoephedrine ER 1 tablet PO DIRECTED 04/12/22 05/17/22 180 mg-240 mg tablet,ext.release 24 hr (Vanessa-D 24 Hour) fluticasone propionate 50 2 spray intranasal DAILY PRN 04/12/22 05/17/22 mcg/actuation nasal Congestion spray,suspension omeprazole 40 mg capsule,delayed 40 mg PO DAILY 04/12/22 05/17/22 release Allergies Allergy/AdvReac Type Severity Reaction Status Date / Time Xpuidwt-RJC-QqU Reductase AdvReac Intermediate Muscle Verified 05/17/22 11:32 Inhibitor cramps/pain [Scezcff-Gvg-Fjs Reductase Inhibitor] Review of Systems Review of Systems: CONSTITUTIONAL: Denies fever, chills, or sweats. EYES: Denies visual changes, redness, or discharge. ENT: Denies rhinorrhea, congestion, sore throat, or otalgia. CARDIOVASCULAR: Denies chest pain, palpitations, or edema. RESPIRATORY: Denies cough or dyspnea. GASTROINTESTINAL: Denies abdominal pain, nausea, vomiting, or diarrhea. GENITOURINARY: Denies dysuria or hematuria. SKIN: Denies rash or itching. MUSCULOSKELETAL: Reports pain to right hand with abrasion. NEUROLOGIC: Denies headache, numbness, or weakness. PSYCHIATRIC: Denies anxiety or depression. All other systems reviewed are negative, except as documented in HPI. [facility] Past Medical History Medical History Anxiety disorder Arthritis Chronic back pain Degenerative cervical disc Kidney stones Lumbar degenerative disc disease Tobacco use Surgical History Surgical History History of endometrial ablation History of tubal ligation Family History Family History Mother Family history of malignant neoplasm Lymphoma Father Patient's father is Estranged from father does not know his past history Sibling Thyroid cancer Other Heart disease Grandmother of heart failure Other Family history of malignant neoplasm of breast Social History Social History Social History: , just got her daughter off to [facility], 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 No significant alcohol use. No illicit substance use. Code status: Full code. Smoking packs per day: 0.5 Smoking cigarettes per day: 10.0 Years smoked: 30 Smoking pack-years: 15.00 Smoking status: Current every day smoker Tobacco type: cigarettes Second hand tobacco smoke exposure: Yes Alcohol intake: never Substance use: never Substance use type: does not use Lack of Transportation: No Lack of Food: Never True Current Housing: I Have Housing Concerned About Future Housing: No Difficulty Paying Gas/Electric Bills: No Difficulty Paying for Meds: No Currently Unemployed: No Education: High Scho
== END 2022-05-17 11:54 | disposition home or self-care (01) ==
PROVIDERS: Emergency Provider Nurse Practitioner Family; PCP Internal Medicine
DX: S60.221A Contusion of right hand, initial encounter (principal); S60.511A Abrasion of right hand, initial encounter; F17.210 Nicotine dependence, cigarettes, uncomplicated; W22.8XXA Striking against or struck by other objects, initial encounter; Y93.K1 Activity, walking an animal
CPT/HCPCS: 73130; 99213; G0463

== ENCOUNTER 2022-08-10 13:50 | Emergency (ER) | payer MEDICAID, SELFPAY ==
[2022-08-10 14:14] VITALS: BP 116/69; PULSE 89; RESP 12; TEMP 37.3; O2SAT 99
--- NOTE | 2022-08-10 15:05 | ED.DENTAL ---
HPI - Dental/Oral General Chief complaint: Dental/Oral Stated complaint: Dental Pain Time Seen by Provider: 08/10/22 15:02 Source: patient, RN notes reviewed and old records reviewed Mode of arrival: ambulatory Limitations: no limitations History of Present Illness HPI Narrative: 52-year-old female who presents to [facility] with complaints dental pain and swelling to her face right lower jawline. Patient had extraction of molar on Friday, no redness of gums or swelling noted to dental extraction site. Patient voices pain to dental extraction site and does have noted swelling to the right jaw area. Patient reports that she is still having pain even with taking Motrin and [place] as prescribed. MD Complaint: tooth pain Location: Tooth # (30 removed) Onset (ago): day(s) (4) Severity scale (1-10): 6 Treatment prior to arrival: oral analgesic Related Data Home Medications Medication Instructions Recorded Confirmed fexofenadine-pseudoephedrine ER 1 tablet PO DIRECTED 04/12/22 05/17/22 180 mg-240 mg tablet,ext.release 24 hr (Vanessa-D 24 Hour) fluticasone propionate 50 2 spray intranasal DAILY PRN 04/12/22 05/17/22 mcg/actuation nasal Congestion spray,suspension Allergies Allergy/AdvReac Type Severity Reaction Status Date / Time Wgosdqy-LIG-JeA Reductase AdvReac Intermediate Muscle Verified 08/10/22 14:18 Inhibitor cramps/pain [Ekzkszq-Apy-Xfa Reductase Inhibitor] Review of Systems Review of Systems: CONSTITUTIONAL: Denies fever, chills, or sweats. ENT: Denies rhinorrhea, congestion, sore throat, or otalgia. Reports dental pain right lower jaw line Number 30 tooth extracted CARDIOVASCULAR: Denies chest pain, palpitations, or edema. RESPIRATORY: Denies cough or dyspnea. SKIN: Denies rash or itching. MUSCULOSKELETAL: Denies myalgia. NEUROLOGIC: Denies headache All systems reviewed & are unremarkable except as noted in HPI and below PMFSH Past Medical History Medical History Anxiety disorder Arthritis Atrial tachycardia Chronic back pain Degenerative cervical disc Kidney stones Lumbar degenerative disc disease Tobacco use Surgical History Surgical History History of endometrial ablation History of tubal ligation Family History Family History Mother Family history of malignant neoplasm Lymphoma Father Patient's father is Estranged from father does not know his past history Sibling Thyroid cancer Other Heart disease Grandmother of heart failure Other Family history of malignant neoplasm of breast Social History Social History Social History: , just got her daughter off to [facility], 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 No significant alcohol use. No illicit substance use. Code status: Full code. Smoking packs per day: 0.5 Smoking cigarettes per day: 10.0 Years smoked: 30 Smoking pack-years: 15.00 Smoking status: Current every day smoker Tobacco type: cigarettes Second hand tobacco smoke exposure: Yes Alcohol intake: never Substance use: never Substance use type: does not use Lack of Transportation: No Lack of Food: Never True Current Housing: I Have Housing Concerned About Future Housing: No Difficulty Paying Gas/Electric Bills: No Difficulty Paying for Meds: No Currently Unemployed: No Education: High School Diploma/GED Difficulty w/ Childcare or Family Care: No Spiritual care concerns: No Comments At time of signature, agree with nursing past medical, surgical, social and family history. There is no relevant family history pertinent to the presenting complaint Exam Narrative: GENERAL: Well-appearing, well-nourished, and in no acute dis
== END 2022-08-10 15:29 | disposition home or self-care (01) ==
PROVIDERS: Emergency Provider Registered Nurse; PCP Family Medicine
DX: K08.89 Other specified disorders of teeth and supporting structures (principal); R22.0 Localized swelling, mass and lump, head; F17.210 Nicotine dependence, cigarettes, uncomplicated; M19.90 Unspecified osteoarthritis, unspecified site; M51.36 Other intervertebral disc degeneration, lumbar region
CPT/HCPCS: 99213; G0463

== ENCOUNTER 2022-10-26 14:52 | Inpatient (IN) | payer OTHER, SELFPAY ==
[2022-10-26] VITALS (44 sets, daily range): BP systolic 81–119; BP diastolic 50–88; PULSE 71–81; RESP 15–28; TEMP 36.2–36.7; O2SAT 96–100; BMI 25.7
--- NOTE | ~2022-10-26 | XR_ITS ---
EXAMINATION: XR sacrum coccyx min 2V DATE: 10/27/2022 15:38 INDICATION: Low back pain. Coccygeal pain. TECHNIQUE: 3 views of the sacrum and coccyx were obtained. COMPARISON: CT abdomen and pelvis 09/02/2020 FINDINGS: There is lumbar levocurvature and mild spondylosis. No fracture. There is mild osteoarthrit is of right sacroiliac joint and moderate osteoarthritis of left sacroiliac joint. Tubal ligation cli ps are noted. IMPRESSION: 1. Mild osteoarthritis of right sacroiliac joint and moderate osteoarthritis of left sacroiliac joint . Reviewed, dictated and finalized at location E. IMPRESSION: 1. Mild osteoarthritis of right sacroiliac joint and moderate osteoarthritis of left sacroiliac joint.
--- NOTE | ~2022-10-26 | XR_ITS ---
EXAMINATION: XR chest 1V portable DATE: 10/26/2022 15:28 INDICATION: Shortness of breath. TECHNIQUE: A single frontal view of the chest was obtained. COMPARISON: Chest 2 views 12/09/2020 FINDINGS: There is mild elevation of right hemidiaphragm. No pneumonia, pleural effusion, or pneumoth orax. The heart size is normal. IMPRESSION: 1. No acute cardiopulmonary disease. Reviewed, dictated and finalized at location E.
--- NOTE | ~2022-10-26 | CT_ITS ---
EXAMINATION: CT brain wo con DATE: 10/26/2022 16:13 INDICATION: Altered mental status. TECHNIQUE: Computed tomography (CT) of the head was performed without intravenous contrast. The mA wa s adjusted according to patient size. Iterative reconstruction technique was employed. The dose-lengt h product was 832.33 mGy-cm. COMPARISON: Head CT 11/21/21 FINDINGS: There is no intracranial hemorrhage, acute infarction, or abnormal intracranial mass lesion . The ventricles are normal in size. The paranasal sinuses are clear. The orbits are normal. The mast oid air cells are normal. IMPRESSION: 1. Normal brain. Reviewed, dictated and finalized at location E. IMPRESSION: 1. Normal brain.
--- NOTE | ~2022-10-26 | XR_ITS ---
EXAMINATION: XR lumbar spine 2-3V DATE: 10/27/2022 15:37 INDICATION: Low back pain. TECHNIQUE: 3 views of lumbar spine were obtained. COMPARISON: Lumbar spine radiograph 08/29/2017 FINDINGS: There is 8 degrees levocurvature of lumbar spine. Vertebral body heights are normal. Interv ertebral disc heights are normal. There is severe facet joint osteoarthritis bilaterally at L4-L5 and L5-S1. Tube ligation clips are noted. IMPRESSION: 1. Mild lumbar spondylosis. Reviewed, dictated and finalized at location E. IMPRESSION: 1. Mild lumbar spondylosis.
--- NOTE | 2022-10-26 15:02 | ED.OVERDOSE ---
HPI - Overdose General Chief Complaint: Overdose Stated Complaint: overdose History of Present Illness HPI Narrative: Patient is a 52-year-old female here after intentional overdose. Per EMS, patient was found in her bathtub with multiple suicide notes around her. She was given narcan en route with minimal improvement of her mental status. Patient is altered so history is limited. She notes taking alprazolam and metoprolol around 4:00 a.m. this morning. Unsure of how many pills of each she took. She denies taking anything else. MD complaint: intentional overdose Onset (ago): hour(s) Timing confirmed by: other (EMS) Intent: suicide attempt Treatments Prior to Arrival: oxygen and narcan Related Data Home Medications Medication Instructions Recorded Confirmed fluticasone propionate 50 2 spray intranasal DAILY PRN 04/12/22 10/26/22 mcg/actuation nasal Congestion spray,suspension albuterol sulfate 90 mcg/actuation 2 puff inhalation Q4H PRN 10/26/22 10/26/22 aerosol inhaler (Ventolin HFA) Shortness Of Breath Or Wheezing hydrocodone 10 mg-acetaminophen 1 tablet PO Q8H PRN pain 10/26/22 10/26/22 325 mg tablet Allergies Allergy/AdvReac Type Severity Reaction Status Date / Time Ermmebu-QLZ-AhS Reductase AdvReac Intermediate Muscle Verified 10/02/22 11:31 Inhibitor cramps/pain [Ljfcznp-Nyx-Sxi Reductase Inhibitor] Review of Systems Review of Systems: ROS unobtainable: Yes unobtainable due to mental status PMFSH Past Medical History Medical History Anxiety disorder Arthritis Atrial tachycardia Chronic back pain Degenerative cervical disc Kidney stones Lumbar degenerative disc disease Tobacco use Surgical History Surgical History History of endometrial ablation History of tubal ligation Family History Family History (Updated 10/26/22 @ 18:23 by Chela Ann RN) Mother Family history of malignant neoplasm Lymphoma Depression Hodgkin lymphoma Father Patient's father is Estranged from father does not know his past history Sibling Thyroid cancer Other Heart disease Grandmother of heart failure Other Family history of malignant neoplasm of breast Social History Social History Social History: , just got her daughter off to [facility], 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 No significant alcohol use. No illicit substance use. Code status: Full code. Smoking packs per day: 0.5 Smoking cigarettes per day: 10.0 Years smoked: 30 Smoking pack-years: 15.00 Smoking status: Current every day smoker Second hand tobacco smoke exposure: Yes Alcohol intake: never Substance use: never Substance use type: does not use Lack of Transportation: No Lack of Food: Never True Current Housing: I Have Housing Concerned About Future Housing: No Difficulty Paying Gas/Electric Bills: No Difficulty Paying for Meds: No Currently Unemployed: No Education: High School Diploma/GED Difficulty w/ Childcare or Family Care: No Spiritual care concerns: No Exam Narrative: GENERAL: Obtunded, arouses to voice and pain. HEAD: Normocephalic, atraumatic. EYES: PERRLA and EOMI. ENT: Nares clear. Dry mucous membranes NECK: Supple. CHEST: Clear to auscultation. No respiratory distress. HEART: Regular rate and rhythm. Normal peripheral pulses. ABDOMEN: Soft, nontender, nondistended. EXTREMITIES: Normal range of motion. No edema. SKIN: Warm, dry, no rash. NEURO: No focal deficits. Course Course Emergency Course: Patient seen and evaluated on EMS arrival. Patient is obtunded but will awake to voice and answer simple questions. Concern for overdose of alprazolam 1 mg and metoprolol 25 mg, unsure of how many she took of each as the bottle
[2022-10-26 15:10] LABS: Alveolar/Arterial O2 Gradient 78.2 mmHg; Base Excess ABG -2.9 mEq/l (+/-2.0); Fractional Inspired Oxygen 28 %; HCO3 ABG 20.8 mEq/l (22.0-26.0); Oxygen Content ABG 17.4 %vol (16.0-22.0); Oxygen Saturation ABG 96.4 % (95.0-100.0); Oxyhemoglobin 94.3 % THb (90.0-100.0); PCO2 ABG 33.1 mmHg (35.0-45.0); PO2 ABG 82.4 mmHg (80.0-100.0); PO2 FiO2 Ratio Arterial Blood 2.94 %; Total Hemoglobin 13.1 g/dL (12.0-18.0); pH ABG 7.417 (7.350-7.450)
[2022-10-26 15:13] LABS: Device NASAL CANNULA; Modified Allen's Test Pass; Site Drawn LEFT RADIAL
[2022-10-26] MEDS: SODIUM CHLORIDE 0.9% IV 1,000 ML 999 ML IV CONT ×2 (15:14→16:44)
[2022-10-26 15:28] LABS: Glucose Point of Care 92 mg/dl (65-105)
[2022-10-26 15:30] LABS: Basophils Percent Auto 0.3 % (0.2-1.2); Eosinophils Absolute Auto 0.1 K/mm3 (0-0.3); Eosinophils Percent Auto 0.5 % (0-4.4); Hematocrit 38.6 % (37.0-47.0); Hemoglobin 12.3 g/dL (12.0-15.0); Immature Granulocyte Absolute 0.03 K/mm3 (0.00-0.031); Immature Granulocyte Percent A 0.2 % (0-0.5); Lymphocytes Absolute Auto 1.66 K/mm3 (0.9-3.2); Lymphocytes Percent Auto 11.1 % (18.3-44.2); Mean Corpuscular HGB Conc 31.9 g/dl (32-36); Mean Corpuscular Hemoglobin 30.8 pg (26-34); Mean Corpuscular Volume 96.7 fl (80-100); Mean Platelet Volume 10.2 fl (7.4-10.4); Monocytes Absolute Auto 1.1 K/mm3 (0.1-0.6); Neutrophils Percent Auto 80.9 % (45.5-73.1); Platelet Count Result 290 k/mm3 (150-375); Red Blood Count 3.99 M/mm3 (4.2-5.4); Red Cell Distribution Width 13.3 % (11.5-14.5); White Blood Count 14.9 K/mm3 (4.5-10.0)
[2022-10-26 15:38] LABS: Appearance Urine Cloudy (Clear); Bacteria Urine None Seen /hpf; Bilirubin Urine Negative (Negative); Blood Urine Negative (Negative); Color Urine Yellow (Yellow); Glucose Urine UA Negative (Negative); Ketones Urine Negative (Negative); Leukocyte Esterase Ur Negative LEU/UL (Negative); Need Manual Microscopic Reviewed; Nitrate Urine Negative (Negative); Non Pathogenic Casts 0-2; Protein Urine Negative (Negative); RBC Urine 0-2 /hpf (0-2); Specific Grav Ur 1.022 (1.001-1.035); Squamous Epithelial Cell Urine None seen /hpf (Few); Urobilinogen Urine 0.2 mg/dL (<2.0); WBC Urine 0-5 /hpf; pH Urine 5.5 (5.0-9.0)
[2022-10-26 15:39] LABS: Amphetamine Screen Urine Negative (Negative); Barbiturate Screen Urine Negative (Negative); Benzodiazepines Screen Urine Positive (Negative); Cannabinoid Screen Urine Negative (Negative); Cocaine Screen Urine Negative (Negative); Methadone Screen Urine Negative (Negative); Opiate Screen Urine Positive (Negative); Phencyclidine Screen Urine Negative (Negative)
[2022-10-26 15:40] LABS: Add Urine Microscopic? NO
[2022-10-26 15:42] LABS: Lactic Acid Reflex 1.2 mmol/L (0.7-2.0)
[2022-10-26 15:44] LABS: Acetaminophen < 10 ug/mL (10-30); Ethanol < 10 mg/dL (<10); Salicylate < 1.0 mg/dL (2-20)
[2022-10-26 15:45] LABS: Alanine Aminotransferase 26 U/L (6-35); Albumin Level 3.5 g/dL (3.5-5.1); Alkaline Phosphatase 107 U/L (38-126); Anion Gap 1 mmol/L (8-16); Aspartate Amino Transferase 28 U/L (14-36); Bilirubin,Total 0.5 mg/dL (0.2-1.3); Blood Urea Nitrogen 14 mg/dL (7-17); Calcium 8.4 mg/dL (8.4-10.2); Carbon Dioxide 25 mmol/L (22-30); Chloride 109 mmol/L (98-107); Estimated CRCL calculation 76 ml/min; Estimated Glomerular Filt Rate > 60; Glucose 98 mg/dL (65-110); Magnesium 1.9 mg/dL (1.6-2.3); Potassium 3.8 mmol/L (3.4-5.0); Sodium 135 mmol/L (137-145)
--- NOTE | 2022-10-26 16:42 | PM.IMHP ---
H&P: HPI History of Present Illness Date/Time: 10/26/22 17:30 Chief Complaint: Intentional overdose. Narrative: This is a 52-year-old female with anxiety, dyslipidemia, and chronic back pain who presented to the emergency department via EMS from home for evaluation after an intentional overdose. She is not able to provide much in the way of history at this time as she is quite somnolent and a majority of the following history is obtained via a review of her EMR as well as the triage in ED physician notes. Her brother Jose at bedside provides additional information. About 4 months ago the patient abruptly quit her job, stating that it was too physically demanding. Since that time she has been spending quite a bit of money ?which she does not have to spend.? About 6 weeks ago she was supposed to go visit her sister in [place] but canceled those plans; she seems to have been withdrawing from her family. The patient's daughter was unable to get a hold of her this morning and she sent Jose over to check on the patient. He went over to the house and she did not answer the door. Daughter then came over with a ojeda and upon entering the home they found several suicide notes. The patient was found lying in her bathtub, minimally responsive. She indicated that she took all remaining pills in her alprazolam 1mg and metoprolol succinate 25 mg bottles at about 0400. She arrived to the emergency department approximately 12 hours thereafter. Vital signs were stable on arrival. Labs were pretty unremarkable aside from a white blood cell count of 14.9. Urine drug screen was positive for opiates and benzodiazepines. Brain CT and chest x-ray were normal. She is being admitted in this setting for close monitoring in the ICU and psychiatric placement once medically stabilized. At the time my evaluation she is obtunded but does arouse to voice. She mutters a few words and attempts to follow some commands. She did not voice any complaints. Review of Systems Review of Systems: Unable to obtain given current clinical condition as detailed above. [facility] Past Medical History Medical History Anxiety disorder Arthritis Atrial tachycardia Chronic back pain Degenerative cervical disc Kidney stones Lumbar degenerative disc disease Tobacco use Surgical History Surgical History History of endometrial ablation History of tubal ligation Family History Family History Mother Family history of malignant neoplasm Lymphoma Depression Hodgkin lymphoma Father Patient's father is Estranged from father does not know his past history Sibling Thyroid cancer Other Heart disease Grandmother of heart failure Other Family history of malignant neoplasm of breast Social History Social History (Updated 10/26/22 @ 20:00 by Carrie Jimenez PA-C) Smoking packs per day: 0.5 Smoking cigarettes per day: 10.0 Years smoked: 30 Smoking pack-years: 15.00 Smoking status: Current every day smoker Second hand tobacco smoke exposure: Yes Alcohol intake: never Substance use: never Substance use type: does not use Lack of Transportation: No Lack of Food: Never True Current Housing: I Have Housing Concerned About Future Housing: No Difficulty Paying Gas/Electric Bills: No Difficulty Paying for Meds: No Currently Unemployed: No Education: High School Diploma/GED Difficulty w/ Childcare or Family Care: No Additional living arrangements comments: Lives in [place] with her dog. She has 1 daughter. Additional occupation/education comments: Patient quit her job approximately 4 months ago. Spiritual care concerns: No Meds Home Medications and Allergies Home Medications Medication Instructions Recorded Confirmed Type fluticasone
--- NOTE | 2022-10-26 18:04 | ADMGEN ---
This patient, Slime Ramirez, was admitted to Intensive Care Unit-4 at 1753. Patient/family oriented to hospital policies and general routines including ID bracelet, bed and alarms, visiting hours, pain management, procedures, bathroom and other care routines, personal items, smoking policy, room service/diet, and visiting hours. Information on how to activate the Rapid Response Team has been discussed. Patient/Family are encouraged to report perceived risks to care and to ask questions if they do not understand what they are told or what they should do.
[2022-10-26] MEDS: SODIUM CHLORIDE 0.9% IV 1,000 ML 125 ML IV CONT (20:45)
[2022-10-27] VITALS (10 sets, daily range): BP systolic 93–120; BP diastolic 51–90; PULSE 76–85; RESP 14–26; TEMP 36.3–36.9; O2SAT 94–98
--- NOTE | 2022-10-27 | ECG_ITS ---
Measurements Intervals [place] Rate: 71 P: 56 WI: 184 QRS: 59 QRSD: 81 T: 41 QT: 381 QTc: 415 Interpretive Statements SINUS RHYTHM LOW-VOLTAGE QRS BASELINE ARTIFACT BORDERLINE ECG COMPARED TO ECG 11/02/2020 08:57:12 HEART RATE HAS DECREASED Electronically Signed On 10-28-2022 15:28:57 CDT by Rigoberto Mitchell M.D.
[2022-10-27 02:27] LABS: Glucose Point of Care 110 mg/dl (65-105)
[2022-10-27 03:36] LABS: Hemoglobin 11.6 g/dL (12.0-15.0); Mean Corpuscular HGB Conc 32.2 g/dl (32-36); Mean Corpuscular Hemoglobin 30.7 pg (26-34); Mean Corpuscular Volume 95.2 fl (80-100); Mean Platelet Volume 10.1 fl (7.4-10.4); Platelet Count Result 257 k/mm3 (150-375); Red Blood Count 3.78 M/mm3 (4.2-5.4); Red Cell Distribution Width 13.2 % (11.5-14.5); White Blood Count 9.5 K/mm3 (4.5-10.0)
[2022-10-27 03:58] LABS: Alanine Aminotransferase 20 U/L (6-35); Albumin Level 3.1 g/dL (3.5-5.1); Alkaline Phosphatase 101 U/L (38-126); Anion Gap 3 mmol/L (8-16); Aspartate Amino Transferase 27 U/L (14-36); Bilirubin,Total 0.5 mg/dL (0.2-1.3); Blood Urea Nitrogen 10 mg/dL (7-17); Calcium 8.1 mg/dL (8.4-10.2); Carbon Dioxide 23 mmol/L (22-30); Chloride 114 mmol/L (98-107); Creatine Kinase 493 U/L (30-135); Estimated CRCL calculation 76 ml/min; Estimated Glomerular Filt Rate > 60; Glucose 93 mg/dL (65-110); Magnesium 1.9 mg/dL (1.6-2.3); Potassium 3.4 mmol/L (3.4-5.0); Sodium 140 mmol/L (137-145)
[2022-10-27] MEDS: SODIUM CHLORIDE 0.9% IV 1,000 ML 125 ML IV CONT (05:21)
--- NOTE | 2022-10-27 06:27 | PC.NURSE ---
0155 Patient with noted change in neuro status. PERSILVINA. Dr. Owens aware and assessed patient. Vital signs stable.
--- NOTE | 2022-10-27 09:02 | WPDCNINT ---
Assessment and Plan Assessment and plan (1) Overdose: Qualifiers: Encounter type: initial encounter Injury intent: intentional self-harm Qualified Code(s): T50.902A - Poisoning by unspecified drugs, medicaments and biological substances, intentional self-harm, initial encounter Code(s): T50.901A - Poisoning by unspecified drugs, medicaments and biological substances, accidental (unintentional), initial encounter Status: Acute Assessment and Plan: Patient presented the ED on 10/26/2022 after ingesting an unknown amount of metoprolol 25 mg and Xanax 1 mg pills and IV a.m. on 10/16/2022. Presented the ED 12 hours post ingestion -she was poorly responsive except to verbal in pain stimulus was able to protect her airway -patient was given 2 L IV fluid bolus -started on maintenance IV fluids in the ER -Patient is is more awake and alert this morning but more confused, oriented only to place. -patient is hemodynamically stable, with normal heart rate and blood pressure (2) Suicidal behavior: Code(s): R45.89 - Other symptoms and signs involving emotional state Status: Acute Assessment and Plan: According the EMS there were multiple suicide notes in the house. -most likely suicidal behavior -continue suicide precautions -bedside sitter -patient is medically stable from my standpoint -she can be downgraded to medical status, will have care coordination and crisis management evaluate the patient for possible placement to a psych facility (3) Major depression: Code(s): F32.9 - Major depressive disorder, single episode, unspecified Status: Acute Assessment and Plan: Will need psychiatry evaluation (4) Anxiety disorder: Code(s): F41.9 - Anxiety disorder, unspecified Status: Acute Assessment and Plan: Will hold home Xanax at this time given she has overdosed on the same medication Plan DVT prophylaxis: Lovenox Stress ulcer prophylaxis: Not indicated Nutrition: Ice chips Code Status: Full code Critical Care Time Spent: 44 minutes Due to a high probability of clinically significant, life threatening deterioration, the patient required my highest level of preparedness to intervene emergently and I personally spent this critical care time directly and personally managing the patient. This critical care time included obtaining a history; examining the patient; pulse oximetry; ordering and review of studies; arranging urgent treatment with development of a management plan; evaluation of patient's response to treatment; frequent reassessment; and discussions with other providers. It was exclusive of separately billable procedures and treating other patients and teaching time. Please see Assessment and Plan section and the rest of the note for further information on patient assessment and treatment This dictation may have been done utilizing a voice recognition system. Attempts have been made to correct errors. However, there may be uncorrected grammatical, spelling, and recognitions errors present. Court Transcriber Consult Note Consult date: 10/27/22 Reason for consult: Intention drug overdose with metoprolol and Xanax, suicide attempt/behavior HPI: Slime Ramirez is a 52 year old female with past medical history of anxiety disorder,, atrial tachycardia, chronic back pain, degenerative cervical disc disease, acutely stools, lumbar degenerative disc disease, tobacco abuse presented the ED on 10/26/2022 when she was brought in by the EMS after being found in bathtub, unresponsive with multiple suicide notes around her. She had taken unknown amount of alprazolam 1 mg and metoprolol 25 mg at 4:00 a.m. on 10/26/2022. The daughter was trying to get in touch with the patient and sent patient's brother Jose to check on the patient. Once he got over to the patient's house she did not answer the door the daughter had to, over the ojeda and upon entering the of the found berta
--- NOTE | 2022-10-27 10:41 | PC.NURSE ---
At 0721 physician ordered urinary Dey for urinary retention. Patient was bladder scanned and had over 400 mls of residual urine. Patient had already been previously straight cathed earlier in the morning for urinary retention. This RN, a prerna and another RN went to assist with Dey insertion and educate patient on need for Dey catheter and what to expect. Patient currently refusing Dey at this time stating that she will punch us if we try to place a Dey . Education again provided, patient still refusing. Provider updated and made aware who also provided education at the bedside about the risk and benefit the Dey catheter would provide. Patient still refusing stating I don't care what will happen to me , you're not putting a Dey catheter in me . Patient only oriented to self at this time, patient confused and believes she is at a hospital somewhere in [place], and the year is 1940. Patient is requesting to speak to the Ambassador at this time. RN to continue to monitor patient status and condition and update provider with any changes.
--- NOTE | 2022-10-27 14:21 | PM.IMPN ---
Progress Note: A&P Assessment and Plan (1) Overdose: Qualifiers: Encounter type: initial encounter Injury intent: intentional self-harm Qualified Code(s): T50.902A - Poisoning by unspecified drugs, medicaments and biological substances, intentional self-harm, initial encounter Code(s): T50.901A - Poisoning by unspecified drugs, medicaments and biological substances, accidental (unintentional), initial encounter Status: Acute (2) Suicidal behavior: Code(s): R45.89 - Other symptoms and signs involving emotional state Status: Acute (3) Major depression: Code(s): F32.9 - Major depressive disorder, single episode, unspecified Status: Acute (4) Anxiety disorder: Code(s): F41.9 - Anxiety disorder, unspecified Status: Acute Plan 52-year-old female with history of anxiety depression dyslipidemia and chronic back pain presented to the ED after intentional overdose. About 4 months ago patient abruptly quit her job and has been stranded from other family members. Patient daughter was unable to get hold of her and went to check on her. She did not answer the door. Daughter came over the ojeda and upon entering the home they found several suicide nodes. Patient was found lying in her backed up minimally responsive. She indicated that she took all remaining peel the alprazolam 1 mg metoprolol succinate 25 mg bottle is at about 4:00 a.m.. She brought to the ED for evaluation 12 hours thereafter. Vitals were stable. Labs unremarkable except for the white cell count of 15. UDS was positive for opiates and benzodiazepines CT brain is negative chest x-ray is negative. Since admitted to the ICU. Poison Control has been contacted she received some IV fluid. Is more alert and oriented 10/27/2022. Within control has signed off. Clear from overdose standpoint. Hemodynamics remained stable. Will have crisis team CR for inpatient psych treatment for his underlying depression. DVT prophylaxis Lovenox Subjective Date/time seen: 10/27/22 14:21 Interval history: 52-year-old female with history of anxiety depression dyslipidemia and chronic back pain presented to the ED after intentional overdose. About 4 months ago patient abruptly quit her job and has been stranded from other family members. Patient daughter was unable to get hold of her and went to check on her. She did not answer the door. Daughter came over the ojeda and upon entering the home they found several suicide nodes. Patient was found lying in her backed up minimally responsive. She indicated that she took all remaining peel the alprazolam 1 mg metoprolol succinate 25 mg bottle is at about 4:00 a.m.. She brought to the ED for evaluation 12 hours thereafter. Vitals were stable. Labs unremarkable except for the white cell count of 15. UDS was positive for opiates and benzodiazepines CT brain is negative chest x-ray is negative. Since admitted to the ICU. Poison Control has been contacted she received some IV fluid. Is more alert and oriented 10/27/2022. Within control has signed off. Clear from overdose standpoint. Hemodynamics remained stable. Will have crisis team CR for inpatient psych treatment for his underlying depression. DVT prophylaxis Lovenox Review of Systems Review of Systems: All systems reviewed & are unremarkable except as noted in HPI and below Exam Narrative: General: Patient is in no acute distress at this time HEENT:? Pupils are equal and reactive, sclera is clear Neck:? Supple Respiratory:? Clear to auscultation bilaterally, no wheezing, adequate air entry Cardiac:? S1-S2 is normal, regular rate and rhythm Abdomen:? Soft, nontender, nondistended, hypoactive bowel sounds Extremities:? No edema, palpable pedal pulses Neuro:? Patient is more awake, alert, oriented x3 Skin:? warm and dry Psych:?flat affect Objective Data Vital Signs Vital Signs: Vital Signs - 24 hr 10/26/22 14:54
--- NOTE | 2022-10-27 15:30 | PC.NURSE ---
Patient transported at 1525 to X-ray by wheelchair with assistance of tech. Patient accompanied by patient sitter to imaging.
[2022-10-27] MEDS: NICOTINE (*PBKC) 14 MG PATCH 1 PATCH TRANSDERM (17:56)
[2022-10-28] VITALS (7 sets, daily range): BP systolic 112–120; BP diastolic 56–64; PULSE 79–94; RESP 16–20; TEMP 36.4–37.1; O2SAT 95–99
[2022-10-28 04:35] LABS: Basophils Percent Auto 0.5 % (0.2-1.2); Eosinophils Absolute Auto 0.1 K/mm3 (0-0.3); Eosinophils Percent Auto 1.5 % (0-4.4); Hematocrit 34.7 % (37.0-47.0); Hemoglobin 11.3 g/dL (12.0-15.0); Immature Granulocyte Absolute 0.02 K/mm3 (0.00-0.031); Immature Granulocyte Percent A 0.2 % (0-0.5); Lymphocytes Absolute Auto 2.44 K/mm3 (0.9-3.2); Lymphocytes Percent Auto 28.5 % (18.3-44.2); Mean Corpuscular HGB Conc 32.6 g/dl (32-36); Mean Corpuscular Volume 95.3 fl (80-100); Mean Platelet Volume 10.3 fl (7.4-10.4); Monocytes Absolute Auto 0.7 K/mm3 (0.1-0.6); Monocytes Percent Auto 8.2 % (2.6-8.5); Neutrophils Absolute Auto 5.2 K/mm3 (1.3-6.7); Neutrophils Percent Auto 61.1 % (45.5-73.1); Platelet Count Result 236 k/mm3 (150-375); Red Blood Count 3.64 M/mm3 (4.2-5.4); Red Cell Distribution Width 13.2 % (11.5-14.5); White Blood Count 8.6 K/mm3 (4.5-10.0)
[2022-10-28 04:52] LABS: Potassium 3.5 mmol/L (3.4-5.0)
[2022-10-28 04:56] LABS: Alanine Aminotransferase 20 U/L (6-35); Alkaline Phosphatase 99 U/L (38-126); Anion Gap 2 mmol/L (8-16); Aspartate Amino Transferase 26 U/L (14-36); Bilirubin,Total 0.3 mg/dL (0.2-1.3); Blood Urea Nitrogen 8 mg/dL (7-17); Calcium 8.3 mg/dL (8.4-10.2); Carbon Dioxide 22 mmol/L (22-30); Chloride 112 mmol/L (98-107); Estimated CRCL calculation 76 ml/min; Estimated Glomerular Filt Rate > 60; Glucose 100 mg/dL (65-110); Sodium 136 mmol/L (137-145)
[2022-10-28] MEDS: ACETAMINOPHEN 500 MG TABLET 1000 MG PO (06:15)
[2022-10-28 06:27] LABS: Creatine Kinase 385 U/L (30-135)
--- NOTE | 2022-10-28 08:18 | PM.IMPN ---
Progress Note: A&P Assessment and Plan (1) Overdose: Qualifiers: Encounter type: initial encounter Injury intent: intentional self-harm Qualified Code(s): T50.902A - Poisoning by unspecified drugs, medicaments and biological substances, intentional self-harm, initial encounter Code(s): T50.901A - Poisoning by unspecified drugs, medicaments and biological substances, accidental (unintentional), initial encounter Status: Acute (2) Suicidal behavior: Code(s): R45.89 - Other symptoms and signs involving emotional state Status: Acute (3) Major depression: Code(s): F32.9 - Major depressive disorder, single episode, unspecified Status: Acute (4) Anxiety disorder: Code(s): F41.9 - Anxiety disorder, unspecified Status: Acute Plan 52-year-old female with history of anxiety depression dyslipidemia and chronic back pain presented to the ED after intentional overdose. About 4 months ago patient abruptly quit her job and has been stranded from other family members. Patient daughter was unable to get hold of her and went to check on her. She did not answer the door. Daughter came over the ojeda and upon entering the home they found several suicide nodes. Patient was found lying in her backed up minimally responsive. She indicated that she took all remaining peel the alprazolam 1 mg metoprolol succinate 25 mg bottle is at about 4:00 a.m.. She brought to the ED for evaluation 12 hours thereafter. Vitals were stable. Labs unremarkable except for the white cell count of 15. UDS was positive for opiates and benzodiazepines CT brain is negative chest x-ray is negative. Since admitted to the ICU. Poison Control has been contacted she received some IV fluid. Is more alert and oriented 10/27/2022 and remains stable. Evaluated again on 10/28/2022. Poison control has signed off. Clear from overdose standpoint. Hemodynamics remained stable. DVT prophylaxis Lovenox. On suicide watch. CK level has improved. Back x-rays with no acute findings. Resume home benzodiazepines to prevent from withdrawal. Also resume his home pain medications. Cleare from medical standpoint for discharge. Crisis team to see for inpatient psych treatment. Subjective Date/time seen: 10/28/22 08:18 Interval history: 52-year-old female with history of anxiety depression dyslipidemia and chronic back pain presented to the ED after intentional overdose. About 4 months ago patient abruptly quit her job and has been stranded from other family members. Patient daughter was unable to get hold of her and went to check on her. She did not answer the door. Daughter came over the ojeda and upon entering the home they found several suicide nodes. Patient was found lying in her backed up minimally responsive. She indicated that she took all remaining peel the alprazolam 1 mg metoprolol succinate 25 mg bottle is at about 4:00 a.m.. She brought to the ED for evaluation 12 hours thereafter. Vitals were stable. Labs unremarkable except for the white cell count of 15. UDS was positive for opiates and benzodiazepines CT brain is negative chest x-ray is negative. Since admitted to the ICU. Poison Control has been contacted she received some IV fluid. Is more alert and oriented 10/27/2022. Within control has signed off. Clear from overdose standpoint. Hemodynamics remained stable. Will have crisis team CR for inpatient psych treatment for his underlying depression. DVT prophylaxis Lovenox 10/28/2022: No overnight events. Feeling well. Complains of back pain which is chronic. X-rays were reviewed. CK level down. On suicide watch. Review of Systems Review of Systems: All systems reviewed & are unremarkable except as noted in HPI and below Exam Narrative: General: Patient is in no acute distress at this time HEENT:? Pupils are equal and reactive, sclera is clear Neck:? Supple Respiratory:? Clear to auscultation bilate
[2022-10-28] MEDS: NICOTINE (*PBKC) 14 MG PATCH 1 PATCH TRANSDERM (09:51)
[2022-10-28] MEDS: ENOXAPARIN 40 MG/0.4 ML SYRINGE SUB-Q (09:52)
[2022-10-28] MEDS: HYDROcodone/acetaminophen (*CRX) 10-325 MG TABLET 1 TAB PO ×2 (13:32→21:56)
[2022-10-28] MEDS: ALPRAZolam (*CRX) 0.5 MG TABLET 1 MG PO ×2 (15:19→21:55)
[2022-10-28 15:44] LABS: SARS-CoV-2 RNA PCR Negative (Negative)
--- NOTE | 2022-10-28 17:22 | PC.NURSE ---
Spoke with Willis with [facility] at 1722. Patient has been accepted by Dr. Alanis to facility.
[2022-10-28] MEDS: IBUPROFEN 600 MG TABLET PO (19:33)
--- NOTE | 2022-10-28 22:30 | PC.NURSE ---
Aminata RN talked to [facility]. Patient accepted by Dr. Alanis. Room 1B. Waiting for transport- scheduled for 1130 on 10/29. Call Crisis back if there are any complications.
[2022-10-29] VITALS: RESP 18
[2022-10-29 04:03] VITALS: BP 98/71; PULSE 76; RESP 20; TEMP 36.4; O2SAT 95
[2022-10-29 08:00] VITALS: BP 152/57; PULSE 85; RESP 18; TEMP 36.7; O2SAT 98
[2022-10-29] MEDS: NICOTINE (*PBKC) 14 MG PATCH 1 PATCH TRANSDERM (08:22)
--- NOTE | 2022-10-29 08:45 | PC.NURSE ---
report called to Daiana WEST at [facility]. Transport scheduled for 1130.
[2022-10-29] MEDS: HYDROcodone/acetaminophen (*CRX) 10-325 MG TABLET 1 TAB PO (12:18)
--- NOTE | 2022-10-29 16:35 | PM.TDS ---
Transfer Discharge Sum: Prov Provider Date of admission: 10/26/22 16:41 Primary care physician: Stan Otto MD Admitting clinician: Isis Oro DO Consults: 10/26/22 Consult to Physician Routine Comment: Consulting Provider: Davis Donaldson research associate professor/MD group to consult: Anika Reason for consultation: overdose Has provider been notified: Yes DS: Admitting Diagnosis Discharge Date 10/29/22 Admitting Diagnosis Drug overdose Suicide attempt DS: Discharge Diagnosis Discharge Diagnosis (1) Overdose: Qualifiers: Encounter type: initial encounter Injury intent: intentional self-harm Qualified Code(s): T50.902A - Poisoning by unspecified drugs, medicaments and biological substances, intentional self-harm, initial encounter Code(s): T50.901A - Poisoning by unspecified drugs, medicaments and biological substances, accidental (unintentional), initial encounter Status: Acute (2) Suicidal behavior: Code(s): R45.89 - Other symptoms and signs involving emotional state Status: Acute (3) Major depression: Code(s): F32.9 - Major depressive disorder, single episode, unspecified Status: Acute (4) Anxiety disorder: Code(s): F41.9 - Anxiety disorder, unspecified Status: Acute Transfer Discharge Sum: Med Medications Active and Home Medications: Home Medications fluticasone propionate 50 mcg/actuation nasal spray,suspension 2 spray intranasal DAILY PRN Congestion 04/12/22 [History Confirmed 10/26/22] metoprolol succinate 25 mg tablet,extended release 24 hr 25 mg PO DAILY #90 tabs 07/08/22 [Rx Confirmed 10/26/22] alprazolam 1 mg tablet 1 mg PO TID PRN anxiety #80 tabs 10/23/22 [Rx Confirmed 10/26/22] albuterol sulfate 90 mcg/actuation aerosol inhaler (Ventolin HFA) 2 puff inhalation Q4H PRN Shortness Of Breath Or Wheezing 10/26/22 [History Confirmed 10/26/22] hydrocodone 10 mg-acetaminophen 325 mg tablet 1 tablet PO Q8H PRN pain 10/26/22 [History Confirmed 10/26/22] Transfer Discharge Sum: Hosp Hospital Course Hospital course: Slime Ramirez is a 52-year-old female with history of anxiety depression dyslipidemia and chronic back pain presented to the ED after intentional overdose.? About 4 months ago patient abruptly quit her job and has been stranded from other family members.? Patient daughter was unable to get hold of her and went to check on her.? She did not answer the door.? Daughter came over the ojeda and upon entering the home they found several suicide nodes.? Patient was found lying in her backed up minimally responsive.? She indicated that she took all remaining pills of alprazolam 1 mg metoprolol succinate 25 mg bottle is at about 4:00 a.m..? She brought to the ED for evaluation 12 hours thereafter.? Vitals were stable.? Labs unremarkable except for the white cell count of? 15.? UDS was positive for opiates and benzodiazepines CT brain is negative chest x-ray is negative.? Since admitted to the ICU.? Poison Control has been contacted she received some IV fluid.? Is more alert and oriented 10/27/2022 and remains stable.? Evaluated again on 10/28/2022.? Poison? control has signed off.? Clear from overdose standpoint.? Hemodynamics remained stable.? DVT prophylaxis Lovenox.? On suicide watch.? CK level has improved.? Back x-rays with no acute findings.? Resume home benzodiazepines to prevent from withdrawal.? Also resume his home pain medications.? Cleared from medical standpoint for discharge.? Crisis team then evaluated and is transferred for inpatient psych treatment Time Spent with Patient Time attestation: Total time spent providing and/or coordinating transfer services: 35 minutes Exam Narrative: General: Patient is in no acute distress at this time HEENT:? Pupils are equal and reactive, sclera is clear Neck:? Supple Respiratory:? Clear to auscultation bilaterally, no wheezing, adequate air entry Cardiac:? S1-S2 is no
== END 2022-10-29 12:27 | DRG 817 ==
LOC: ANHED 16:57 → ANHICU 18:03
PROVIDERS: Internal Medicine; Physician Assistant; Admitting Provider Student in an Organized Health Care Education/Training Program; Emergency Provider Student in an Organized Health Care Education/Training Program; PCP Family Medicine; Visit Provider Internal Medicine
DX: T42.4X2A Poisoning by benzodiazepines, intentional self-harm, initial encounter (principal); E78.5 Hyperlipidemia, unspecified; T44.7X2A Poisoning by beta-adrenoreceptor antagonists, intentional self-harm, initial encounter; F32.9 Major depressive disorder, single episode, unspecified; F41.9 Anxiety disorder, unspecified; R45.89 Other symptoms and signs involving emotional state; M51.36 Other intervertebral disc degeneration, lumbar region; M50.30 Other cervical disc degeneration, unspecified cervical region; F17.210 Nicotine dependence, cigarettes, uncomplicated; Z87.442 Personal history of urinary calculi; Z20.822 Contact with and (suspected) exposure to COVID-19
CPT/HCPCS: 36415; 36600; 70450; 71045; 72100; 72220; 80053; 80307; 81003; 81025; 82550; 82805; 82948; 83605; 83735; 84443; 85025; 85027; 87635; 93005; 96360; 99285; A9270; J1650; J7030; J7050

== ENCOUNTER 2023-02-22 11:30 | Emergency (ER) | payer OTHER, SELFPAY ==
--- NOTE | 2023-02-22 11:34 | ED.URI ---
HPI - URI/Sore Throat General Chief Complaint: Upper Respiratory Infection Stated Complaint: Sinus Time Seen by Provider: 02/22/23 11:31 Source: patient Mode of arrival: ambulatory Limitations: no limitations History of Present Illness HPI Narrative: Slime is a 52-year-old female patient presenting to the clinic today with complaints of sinus congestion, yellow nasal drainage, headache, cough, and sinus pressure times 10 days. She denies any fever or chills. MD elicited complaint: cough, rhinorrhea, nasal congestion and sinus pain Related Data Home Medications Medication Instructions Recorded Confirmed albuterol sulfate 90 mcg/actuation 2 puff inhalation Q4H PRN 10/26/22 02/22/23 aerosol inhaler (Ventolin HFA) Shortness Of Breath Or Wheezing aripiprazole 5 mg tablet 10 mg PO DAILY 11/14/22 02/22/23 duloxetine 60 mg capsule,delayed 60 mg PO DAILY 11/14/22 02/22/23 release hydroxyzine pamoate 50 mg capsule 50 mg PO QID 11/14/22 02/22/23 lamotrigine 25 mg chewable 25 mg PO DAILY 11/14/22 02/22/23 dispersible tablet trazodone 50 mg tablet 50 mg PO QHS 11/14/22 02/22/23 hydrocodone 10 mg-acetaminophen tablet 02/22/23 325 mg tablet Allergies Allergy/AdvReac Type Severity Reaction Status Date / Time Bgvfwus-ZKT-AlS Reductase AdvReac Intermediate Muscle Verified 02/22/23 11:37 Inhibitor cramps/pain [Egwbxrd-Pmj-Ytj Reductase Inhibitor] Review of Systems Review of Systems: Pertinent positives per HPI. Patient denies any fever, chills, rash, visual changes, dizziness,shortness of breath, chest pain, palpitations, nausea, vomiting, diarrhea, constipation, abdominal pain, or any urinary issues. [facility] Past Medical History Medical History Anxiety disorder Arthritis Atrial tachycardia Chronic back pain Degenerative cervical disc Kidney stones Lumbar degenerative disc disease Tobacco use Surgical History Surgical History History of endometrial ablation History of tubal ligation Family History Family History Mother Family history of malignant neoplasm Lymphoma Depression Hodgkin lymphoma Father Patient's father is Estranged from father does not know his past history Sibling Thyroid cancer Other Heart disease Grandmother of heart failure Other Family history of malignant neoplasm of breast Social History Social History Smoking packs per day: 0.5 Smoking cigarettes per day: 10.0 Years smoked: 30 Smoking pack-years: 15.00 Smoking status: Current every day smoker Second hand tobacco smoke exposure: Yes Alcohol intake: never Substance use: never Substance use type: does not use Lack of Transportation: No Lack of Food: Never True Current Housing: I Have Housing Concerned About Future Housing: No Difficulty Paying Gas/Electric Bills: No Difficulty Paying for Meds: No Currently Unemployed: No Education: High School Diploma/GED Difficulty w/ Childcare or Family Care: No Additional living arrangements comments: Lives in [place] with her dog. She has 1 daughter. Additional occupation/education comments: Patient quit her job approximately 4 months ago. Spiritual care concerns: No Comments At the time of my signature, I reviewed and agree with the nursing past medical, surgical, social, and family history. There is no relevant family history pertinent to the patient complaint. Exam Narrative: General: Well-developed, well nourished, in no apparent distress Head: Normocephalic, atraumatic Eyes: Pupils equally round and reactive to light bilaterally, EOM intact, sclera and conjunctive clear, no discharge, lids normal Ears: TMs intact and clear, ear canals clear, no drainage,
[2023-02-22 11:39] VITALS: BP 109/54; PULSE 94; RESP 16; TEMP 37.1; O2SAT 98
== END 2023-02-22 11:53 | disposition home or self-care (01) ==
PROVIDERS: Emergency Provider Nurse Practitioner Family; PCP Family Medicine
DX: J01.90 Acute sinusitis, unspecified (principal); F17.210 Nicotine dependence, cigarettes, uncomplicated; M19.90 Unspecified osteoarthritis, unspecified site; M50.30 Other cervical disc degeneration, unspecified cervical region; M51.36 Other intervertebral disc degeneration, lumbar region; F41.9 Anxiety disorder, unspecified
CPT/HCPCS: 99213; G0463

== ENCOUNTER 2023-03-16 08:19 | Emergency (ER) | payer OTHER, SELFPAY ==
--- NOTE | 2023-03-16 08:27 | ED.URI ---
HPI - URI/Sore Throat General Chief Complaint: Upper Respiratory Infection Stated Complaint: dizzy,cough, ribs hurt Time Seen by Provider: 03/16/23 08:27 Source: patient Mode of arrival: ambulatory Limitations: no limitations History of Present Illness HPI Narrative: Remedios is a 52-year-old female patient presenting to clinic today with complaints of dizziness, cough, weakness, shortness of breath, and rib pain. She reports she was seen in the clinic on February 22 and was diagnosed with acute bacterial rhinosinusitis and treated with Augmentin and prednisone. States that she never did get better. Today she is complaining of symptoms above. Has 37.7? C temperature in the clinic today. Blood pressure is 86/46 with a heart rate of 112. MD elicited complaint: fever, cough and other (Dizziness, weakness, shortness breath, rib pain) Related Data Home Medications Medication Instructions Recorded Confirmed albuterol sulfate 90 mcg/actuation 2 puff inhalation Q4H PRN 10/26/22 03/16/23 aerosol inhaler (Ventolin HFA) Shortness Of Breath Or Wheezing aripiprazole 5 mg tablet 10 mg PO DAILY 11/14/22 03/16/23 duloxetine 60 mg capsule,delayed 60 mg PO DAILY 11/14/22 03/16/23 release hydroxyzine pamoate 50 mg capsule 50 mg PO QID 11/14/22 03/16/23 lamotrigine 25 mg chewable 25 mg PO DAILY 11/14/22 03/16/23 dispersible tablet trazodone 50 mg tablet 50 mg PO QHS 11/14/22 03/16/23 Allergies Allergy/AdvReac Type Severity Reaction Status Date / Time Tbowggd-BZI-MvC Reductase AdvReac Intermediate Muscle Verified 03/16/23 09:09 Inhibitor cramps/pain [Pdplcip-Dcl-Vsn Reductase Inhibitor] Review of Systems Review of Systems: Pertinent positives per HPI. Patient denies any rash, headache, visual changes, palpitations, nausea, vomiting, diarrhea, constipation, abdominal pain, or any urinary issues. [facility] Past Medical History Medical History Anxiety disorder Arthritis Atrial tachycardia Chronic back pain Degenerative cervical disc Kidney stones Lumbar degenerative disc disease Tobacco use Surgical History Surgical History History of endometrial ablation History of tubal ligation Family History Family History Mother Family history of malignant neoplasm Lymphoma Depression Hodgkin lymphoma Father Patient's father is Estranged from father does not know his past history Sibling Thyroid cancer Other Heart disease Grandmother of heart failure Other Family history of malignant neoplasm of breast Social History Social History Smoking packs per day: 0.5 Smoking cigarettes per day: 10.0 Years smoked: 30 Smoking pack-years: 15.00 Smoking status: Current every day smoker Second hand tobacco smoke exposure: Yes Alcohol intake: never Substance use: never Substance use type: does not use Lack of Transportation: No Lack of Food: Never True Current Housing: I Have Housing Concerned About Future Housing: No Difficulty Paying Gas/Electric Bills: No Difficulty Paying for Meds: No Currently Unemployed: No Education: High School Diploma/GED Difficulty w/ Childcare or Family Care: No Additional living arrangements comments: Lives in [place] with her dog. She has 1 daughter. Additional occupation/education comments: Patient quit her job approximately 4 months ago. Spiritual care concerns: No Comments At the time of my signature, I reviewed and agree with the nursing past medical, surgical, social, and family history. There is no relevant family history pertinent to the patient complaint. Exam Narrative: General: Well-developed, well nourished, ill-appearing Head: Normocephalic, atraumatic Eyes: Pup
[2023-03-16 08:32] VITALS: BP 86/46; PULSE 112; RESP 16; TEMP 37.7; O2SAT 97
[2023-03-16 08:38] VITALS: BP 102/70
== END 2023-03-16 08:43 | disposition short-term general hospital (02) ==
PROVIDERS: Emergency Provider Nurse Practitioner Family; PCP Family Medicine
DX: J10.1 Influenza due to other identified influenza virus with other respiratory manifestations (principal); R00.0 Tachycardia, unspecified; R06.02 Shortness of breath; I95.9 Hypotension, unspecified; Z20.822 Contact with and (suspected) exposure to COVID-19; F17.210 Nicotine dependence, cigarettes, uncomplicated; M19.90 Unspecified osteoarthritis, unspecified site; M50.30 Other cervical disc degeneration, unspecified cervical region; M51.36 Other intervertebral disc degeneration, lumbar region; F41.9 Anxiety disorder, unspecified
CPT/HCPCS: 87426; 87804; 99215; C9803; G0463

== ENCOUNTER 2023-03-16 09:04 | Emergency (ER) | payer OTHER, SELFPAY ==
--- NOTE | ~2023-03-16 | XR_ITS ---
EXAMINATION: XR chest 1V portable DATE: 03/16/2023 09:51 INDICATION: Cough and dizziness. TECHNIQUE: A single frontal view of the chest was obtained. COMPARISON: Chest single view 10/26/2022 FINDINGS: There is no pneumonia, pleural effusion, or pneumothorax. The heart size is normal. IMPRESSION: 1. No acute cardiopulmonary disease. Reviewed, dictated and finalized at location A. 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
[2023-03-16 09:02] VITALS: BP 112/64; PULSE 104; RESP 20; TEMP 37.5; O2SAT 98
[2023-03-16 09:07] VITALS: O2SAT 96
[2023-03-16 09:50] LABS: Basophils Percent Auto 0.5 % (0.2-1.2); Eosinophils Percent Auto 0.5 % (0-4.4); Hematocrit 40.1 % (37.0-47.0); Hemoglobin 12.8 g/dL (12.0-15.0); Immature Granulocyte Absolute 0.02 K/mm3 (0.00-0.031); Immature Granulocyte Percent A 0.2 % (0-0.5); Lymphocytes Absolute Auto 1.46 K/mm3 (0.9-3.2); Lymphocytes Percent Auto 16.9 % (18.3-44.2); Mean Corpuscular HGB Conc 31.9 g/dl (32-36); Mean Corpuscular Hemoglobin 29.3 pg (26-34); Mean Corpuscular Volume 91.8 fl (80-100); Mean Platelet Volume 9.3 fl (7.4-10.4); Monocytes Absolute Auto 0.7 K/mm3 (0.1-0.6); Monocytes Percent Auto 8.1 % (2.6-8.5); Neutrophils Absolute Auto 6.4 K/mm3 (1.3-6.7); Neutrophils Percent Auto 73.8 % (45.5-73.1); Platelet Count Result 387 k/mm3 (150-375); Red Blood Count 4.37 M/mm3 (4.2-5.4); Red Cell Distribution Width 14.1 % (11.5-14.5); White Blood Count 8.6 K/mm3 (4.5-10.0)
[2023-03-16 09:56] LABS: Appearance Urine Clear (Clear); Bacteria Urine None Seen /hpf; Bilirubin Urine Negative (Negative); Blood Urine Negative (Negative); Color Urine Yellow (Yellow); Glucose Urine UA Negative (Negative); Ketones Urine Negative (Negative); Leukocyte Esterase Ur 1+ LEU/UL (Negative); Nitrate Urine Negative (Negative); Non Pathogenic Casts 0-2; Protein Urine Negative (Negative); RBC Urine 0-2 /hpf (0-2); Specific Grav Ur 1.017 (1.001-1.035); Squamous Epithelial Cell Urine Occasional /hpf (Few); Urobilinogen Urine 0.2 mg/dL (<2.0); pH Urine 6.5 (5.0-9.0)
[2023-03-16] MEDS: SODIUM CHLORIDE 0.9% IV 1,000 ML 999 ML IV CONT ×2 (09:56→11:06)
[2023-03-16 10:05] LABS: Alanine Aminotransferase 28 U/L (6-35); Albumin Level 4.1 g/dL (3.5-5.1); Alkaline Phosphatase 89 U/L (38-126); Anion Gap 8 mmol/L (8-16); Aspartate Amino Transferase 27 U/L (14-36); Bilirubin,Total 0.4 mg/dL (0.2-1.3); Blood Urea Nitrogen 15 mg/dL (7-17); Calcium 9.5 mg/dL (8.4-10.2); Carbon Dioxide 24 mmol/L (22-30); Chloride 105 mmol/L (98-107); Estimated CRCL calculation 58 ml/min; Estimated Glomerular Filt Rate > 60; Glucose 107 mg/dL (65-110); Sodium 137 mmol/L (137-145)
[2023-03-16 10:09] LABS: Add Urine Microscopic? YES
[2023-03-16 10:26] LABS: Influenza A QL RT-PCR Positive (Negative); Influenza B QL RT-PCR Negative (Negative); RSV RNA, RT-PCR Negative (Negative); SARS-CoV-2 RNA PCR Negative (Negative)
--- NOTE | 2023-03-16 10:53 | ED.GENADULT ---
HPI - General Adult General Chief complaint: Upper Respiratory Infection Stated complaint: flu, dizzy Time Seen by Provider: 03/16/23 09:12 History of Present Illness HPI narrative: 52-year-old female presenting to the emergency department for evaluation of cough congestion nausea vomiting and dizziness. Patient initially presented urgent care but was transferred to the emergency department for evaluation of tachycardia and hypotension. Upon arrival to the emergency department by EMS patient's vital signs had improved. Related Data Home Medications Medication Instructions Recorded Confirmed albuterol sulfate 90 mcg/actuation 2 puff inhalation Q4H PRN 10/26/22 03/16/23 aerosol inhaler (Ventolin HFA) Shortness Of Breath Or Wheezing aripiprazole 5 mg tablet 10 mg PO DAILY 11/14/22 03/16/23 duloxetine 60 mg capsule,delayed 60 mg PO DAILY 11/14/22 03/16/23 release hydroxyzine pamoate 50 mg capsule 50 mg PO QID 11/14/22 03/16/23 lamotrigine 25 mg chewable 25 mg PO DAILY 11/14/22 03/16/23 dispersible tablet trazodone 50 mg tablet 50 mg PO QHS 11/14/22 03/16/23 Allergies Allergy/AdvReac Type Severity Reaction Status Date / Time Ardsrrx-EZW-IzN Reductase AdvReac Intermediate Muscle Verified 03/16/23 09:09 Inhibitor cramps/pain [Lnfuski-Gti-Xvc Reductase Inhibitor] Review of Systems Review of Systems: All systems reviewed & are unremarkable except as noted in HPI and below PMFSH Past Medical History Medical History Anxiety disorder Arthritis Atrial tachycardia Chronic back pain Degenerative cervical disc Kidney stones Lumbar degenerative disc disease Tobacco use Surgical History Surgical History History of endometrial ablation History of tubal ligation Family History Family History Mother Family history of malignant neoplasm Lymphoma Depression Hodgkin lymphoma Father Patient's father is Estranged from father does not know his past history Sibling Thyroid cancer Other Heart disease Grandmother of heart failure Other Family history of malignant neoplasm of breast Social History Social History Smoking packs per day: 0.5 Smoking cigarettes per day: 10.0 Years smoked: 30 Smoking pack-years: 15.00 Smoking status: Current every day smoker Second hand tobacco smoke exposure: Yes Alcohol intake: never Substance use: never Substance use type: does not use Lack of Transportation: No Lack of Food: Never True Current Housing: I Have Housing Concerned About Future Housing: No Difficulty Paying Gas/Electric Bills: No Difficulty Paying for Meds: No Currently Unemployed: No Education: High School Diploma/GED Difficulty w/ Childcare or Family Care: No Additional living arrangements comments: Lives in [place] with her dog. She has 1 daughter. Additional occupation/education comments: Patient quit her job approximately 4 months ago. Spiritual care concerns: No Exam Narrative: APPEARANCE: Ill-appearing, no distress HEAD: normocephalic, atraumatic. EYES: PERRLA/EOMI, conjunctivae clear. NOSE: Normal no drainage EARS:TMS clear with good light reflex. THROAT: Pharynx clear, no exudate. NECK: Supple. No adenopathy, no masses. RESPIRATORY: Airway patent, respirations nonlabored. Clear to auscultation bilaterally, no rales, rhonchi, wheezing. CARDIOVASCULAR: Regular rate and rhythm without murmurs rubs or gallops. ABDOMINAL: Soft, nontender, nondistended, normal bowel sounds MUSCULOSKELETAL: Moves all extremities. Strength/ROM intact, No edema, No calf tenderness. NEURO: Alert. Cranial nerves II through XII intact. Grossly intact SKIN: Warm, dry. Normal Color Course Course Emergen
[2023-03-16 11:00] VITALS: RESP 20
[2023-03-16] MEDS: ALBUTEROL SULFATE NEB 2.5 MG/3 ML INH INHALATION (11:03)
[2023-03-16] MEDS: MECLIZINE HCL 25 MG TABLET PO (11:05)
[2023-03-16] MEDS: BENZONATATE 100 MG CAPSULE PO (11:05)
[2023-03-16 11:07] VITALS: BP 111/68; PULSE 91; RESP 20; O2SAT 100
[2023-03-16 13:01] VITALS: BP 132/80; PULSE 80; RESP 16; TEMP 36.7; O2SAT 98
== END 2023-03-16 13:06 | disposition home or self-care (01) ==
PROVIDERS: Emergency Provider Emergency Medicine; PCP Family Medicine
DX: J10.1 Influenza due to other identified influenza virus with other respiratory manifestations (principal); Z20.822 Contact with and (suspected) exposure to COVID-19; F17.210 Nicotine dependence, cigarettes, uncomplicated; F41.9 Anxiety disorder, unspecified; M19.90 Unspecified osteoarthritis, unspecified site; Z87.442 Personal history of urinary calculi
CPT/HCPCS: 36415; 71045; 80053; 81001; 85025; 87077; 87086; 87088; 87186; 87426; 87637; 87804; 94640; 96360; 96361; 99283; A9270; C9803; J7030

== ENCOUNTER 2023-08-27 10:29 | Outpatient (CLI) | payer OTHER, MEDICAID, SELFPAY ==
--- NOTE | ~2023-08-27 | XR_ITS ---
XR lumbar spine 2-3V 08/27/2023 10:52 Indication: Low back pain Procedure: 3 views lumbar spine Comparison: 10/27/2022 Findings: Vertebral body heights are maintained. No fracture, subluxation or dislocation. No evidence for spondylolisthesis or spondylolysis. There is levocurvature of the lumbar spine. There are tubal ligation clips in the pelvis. There is mild disc narrowing at multiple levels. There is facet degener ative change at L4-5 and L5-S1. Impression: 1: Mild lumbar spondylosis. Reviewed, dictated and finalized at location B. Impression: 1: Mild lumbar spondylosis.
== END 2023-08-27 10:30 | disposition home or self-care (01) ==
LOC: ANHIMG 10:31
PROVIDERS: PCP Family Medicine; Visit Provider Nurse Practitioner Family
DX: M54.50 Low back pain, unspecified (principal); M47.896 Other spondylosis, lumbar region
CPT/HCPCS: 72100

== ENCOUNTER 2023-10-17 15:28 | Outpatient (CLI) | payer OTHER, MEDICAID, SELFPAY ==
--- NOTE | ~2023-10-17 | XR_ITS ---
EXAMINATION:XR cervical spine 4-5V DATE: 10/17/2023 15:42 INDICATION: Cervicalgia post fall one year prior TECHNIQUE: AP, lateral, lateral flexion, lateral extension and odontoid views of the cervical spine a re provided. COMPARISON: CT dated 11/21/2021 FINDINGS: Alignment is normal with normal motion with flexion and extension. Odontoid is intact. Normal atlant oaxial interval. Vertebral body heights are normal. Mild to moderate disc height loss at C5-C6 with m oderate bilateral uncovertebral osteoarthritis and small posterior endplate osteophytes contributing to mild central canal stenosis at this level. There is multilevel mild cervical facet osteoarthritis Prevertebral soft tissues are normal. IMPRESSION: 1. Mild to moderate lower cervical spondylosis. Reviewed, dictated and finalized at location A.
== END 2023-10-17 15:29 | disposition home or self-care (01) ==
LOC: ANHIMG 15:29
PROVIDERS: PCP Family Medicine; Visit Provider Nurse Practitioner Adult Health
DX: M43.02 Spondylolysis, cervical region (principal)
CPT/HCPCS: 72050

== ENCOUNTER 2024-01-04 11:55 | Emergency (ER) | payer OTHER, MEDICAID, SELFPAY ==
[2024-01-04 12:10] VITALS: BP 111/40; PULSE 93; RESP 16; TEMP 36.5; O2SAT 98
[2024-01-04 12:11] VITALS: BP 105/59
[2024-01-04 12:22] LABS: Glucose Point of Care 173 mg/dl (65-105)
--- NOTE | 2024-01-04 12:36 | ED.HA ---
HPI - Headache General Chief Complaint: Headache Stated Complaint: MATHIS not like regular MATHIS threw up Time Seen by Provider: 01/04/24 11:57 Source: patient Mode of arrival: ambulatory Limitations: no limitations History of Present Illness HPI Narrative: 53-year-old female presents to [facility] with complaints of severe headache since 7:00 p.m. last night. Patient reports it is more than a headache; I threw up and then this pain started. I tried walking around and sitting down and nothing would help. Patient reports that the pain started 10/10 and now is a 3/10. Patient reports that she took Killen and Motrin last evening after the pain started which did not help much with the pain. Patient denies numbness or tingling. Patient does report mild blurred vision. Patient reports that she has had headaches in the past but this headache feels different. Pt denies family hx of CVA. MD elicited complaint: headache Onset (ago): hour(s) (17) Onset description: suddenly Location: occipital Severity: mild Pain scale (0-10): 3 Exacerbating factors: none Associated symptoms: vomiting Treatments prior to arrival: ibuprofen and prescription analgesic Related Data Home Medications Medication Instructions Recorded Confirmed albuterol sulfate 90 mcg/actuation 2 puff inhalation Q4H PRN 10/26/22 01/04/24 aerosol inhaler (Ventolin HFA) Shortness Of Breath Or Wheezing aripiprazole 5 mg tablet 10 mg PO DAILY 11/14/22 01/04/24 duloxetine 60 mg capsule,delayed 60 mg PO DAILY 11/14/22 01/04/24 release hydroxyzine pamoate 50 mg capsule 50 mg PO QID 11/14/22 01/04/24 buprenorphine 5 mcg/hour weekly See Rx Instructions .Route .COMPLEX 01/04/24 01/04/24 transdermal patch clonidine HCl 0.3 mg tablet See Rx Instructions .Route .COMPLEX 01/04/24 01/04/24 gabapentin 400 mg capsule See Rx Instructions .Route .COMPLEX 01/04/24 01/04/24 lamotrigine 200 mg tablet 200 mg PO DAILY 01/04/24 01/04/24 meloxicam 15 mg tablet 15 mg PO DAILY 01/04/24 01/04/24 trazodone 150 mg tablet 150 mg PO DAILY 01/04/24 01/04/24 Allergies Allergy/AdvReac Type Severity Reaction Status Date / Time Rqpzpxl-ZSK-YzM Reductase AdvReac Intermediate Muscle Verified 01/04/24 11:58 Inhibitor cramps/pain [Pbrxops-Cxn-Tsd Reductase Inhibitor] Review of Systems Constitutional: Constitutional: Denies chills, Denies fatigue, Denies fever(s) and Denies weakness ENT: Denies dizziness, Denies epistaxis and Denies nasal congestion Respiratory: Respiratory: Denies cough, Denies dyspnea and Denies wheezing Gastrointestinal: Gastrointestinal: Denies diarrhea, Denies nausea and Denies vomiting Integumentary/Breasts: Skin/Breast: Denies erythema, Denies rash and Denies skin ulcer Neurologic: Denies confusion, Denies vertigo, Denies dizziness, Denies syncope, Reports headache(s), Denies numbness and Denies weakness Comments: blurred vision [facility] Past Medical History Medical History Anxiety disorder Arthritis Atrial tachycardia Chronic back pain Degenerative cervical disc Kidney stones Lumbar degenerative disc disease Tobacco use Surgical History Surgical History History of endometrial ablation History of tubal ligation Family History Family History Mother Family history of malignant neoplasm Lymphoma Depression Hodgkin lymphoma Father Patient's father is Estranged from father does not know his past history Sibling Thyroid cancer Other Heart disease Grandmother of heart failure Other Family history of malignant neoplasm of breast Social History Social History Smoking packs per day: 0.5 Smoking cigarettes per day: 10.0 Years smoked: 30 Smoking pack-years: 15.00 Smoking status:
== END 2024-01-04 12:44 | disposition home or self-care (01) ==
PROVIDERS: Emergency Provider Nurse Practitioner Family; PCP Nurse Practitioner Family
DX: R51.9 Headache, unspecified (principal); F17.210 Nicotine dependence, cigarettes, uncomplicated; M19.90 Unspecified osteoarthritis, unspecified site; M47.812 Spondylosis without myelopathy or radiculopathy, cervical region; M47.816 Spondylosis without myelopathy or radiculopathy, lumbar region; F41.9 Anxiety disorder, unspecified
CPT/HCPCS: 82948; 99215; G0463

== ENCOUNTER 2024-01-04 13:11 | Emergency (ER) | payer OTHER, MEDICAID, SELFPAY ==
--- NOTE | ~2024-01-04 | CT_ITS ---
Non-contrast Head CT History: Headache Technique: Axial non-contrast imaging of the brain was performed. Dose reduction technique was used on this scan by utilizing automated exposure control and iterative reconstruction technique. The dose -length product (DLP) was 605.33 mGy-cm. Findings: There is no evidence of intracranial hemorrhage, mass lesion, or acute infarct. Brain par enchyma appears normal. The ventricles and subarachnoid spaces are normal in size. The calvarium ap pears normal. The visualized paranasal sinuses and mastoid air cells are clear. Impression: No significant abnormality seen. Reviewed, dictated and finalized at location . Impression: No significant abnormality seen.
[2024-01-04 13:22] VITALS: BP 116/71; PULSE 73; RESP 14; TEMP 36.6; O2SAT 97
[2024-01-04 14:42] VITALS: BP 118/94; PULSE 73; RESP 16; O2SAT 99
--- NOTE | 2024-01-04 15:08 | ED.GENADULT ---
HPI - General Adult General Chief complaint: Headache Stated complaint: headache Time Seen by Provider: 01/04/24 14:48 History of Present Illness HPI narrative: 53-year-old female presenting to the emergency department for evaluation for a headache. Patient states last night she had onset of nausea vomiting and headache. Patient did take multiple medications for pain control last night but these did not help. Patient denies any associated numbness or weakness. Patient states having headaches is atypical for her. Related Data Home Medications Medication Instructions Recorded Confirmed albuterol sulfate 90 mcg/actuation 2 puff inhalation Q4H PRN 10/26/22 01/04/24 aerosol inhaler (Ventolin HFA) Shortness Of Breath Or Wheezing aripiprazole 5 mg tablet 10 mg PO DAILY 11/14/22 01/04/24 duloxetine 60 mg capsule,delayed 60 mg PO DAILY 11/14/22 01/04/24 release hydroxyzine pamoate 50 mg capsule 50 mg PO QID 11/14/22 01/04/24 buprenorphine 5 mcg/hour weekly See Rx Instructions .Route .COMPLEX 01/04/24 01/04/24 transdermal patch clonidine HCl 0.3 mg tablet See Rx Instructions .Route .COMPLEX 01/04/24 01/04/24 gabapentin 400 mg capsule See Rx Instructions .Route .COMPLEX 01/04/24 01/04/24 lamotrigine 200 mg tablet 200 mg PO DAILY 01/04/24 01/04/24 meloxicam 15 mg tablet 15 mg PO DAILY 01/04/24 01/04/24 trazodone 150 mg tablet 150 mg PO DAILY 01/04/24 01/04/24 Allergies Allergy/AdvReac Type Severity Reaction Status Date / Time Yzilsjf-FSC-GdD Reductase AdvReac Intermediate Muscle Verified 01/04/24 11:58 Inhibitor cramps/pain [Skzeiic-Kal-Pqx Reductase Inhibitor] Review of Systems Review of Systems: All systems reviewed & are unremarkable except as noted in HPI and below PMFSH Past Medical History Medical History Anxiety disorder Arthritis Atrial tachycardia Chronic back pain Degenerative cervical disc Kidney stones Lumbar degenerative disc disease Tobacco use Surgical History Surgical History History of endometrial ablation History of tubal ligation Family History Family History Mother Family history of malignant neoplasm Lymphoma Depression Hodgkin lymphoma Father Patient's father is Estranged from father does not know his past history Sibling Thyroid cancer Other Heart disease Grandmother of heart failure Other Family history of malignant neoplasm of breast Social History Social History Smoking packs per day: 0.5 Smoking cigarettes per day: 10.0 Years smoked: 30 Smoking pack-years: 15.00 Smoking status: Current every day smoker Second hand tobacco smoke exposure: Yes Alcohol intake: never Substance use: never Substance use type: does not use Lack of Transportation: No Lack of Food: Never True Current Housing: I Have Housing Concerned About Future Housing: No Difficulty Paying Gas/Electric Bills: No Difficulty Paying for Meds: No Currently Unemployed: No Education: High School Diploma/GED Difficulty w/ Childcare or Family Care: No Additional living arrangements comments: Lives in [place] with her dog. She has 1 daughter. Additional occupation/education comments: Patient quit her job approximately 4 months ago. Spiritual care concerns: No Exam Narrative: APPEARANCE: Well appearing, no pain, no distress, well-nourished. HEAD: normocephalic, atraumatic. EYES: PERRLA/EOMI, conjunctivae clear. NOSE: Normal no drainage EARS:TMS clear with good light reflex. THROAT: Pharynx clear, no exudate. NECK: Supple. No adenopathy, no masses. RESPIRATORY: Airway patent, respirations nonlabored. Clear to auscultation bilaterally, no rales, rhonchi, wheezing. CARDIOVASCULAR: Regular rate and rhythm
[2024-01-04] MEDS: SODIUM CHLORIDE 0.9% IV 1,000 ML 999 ML IV CONT (15:11)
[2024-01-04] MEDS: KETOROLAC 15 MG/ML VIAL (*BKC) IV PUSH (15:11)
[2024-01-04] MEDS: diphenhydrAMINE HCl INJ 50 MG/ML VIAL 25 MG IV PUSH (15:11)
[2024-01-04] MEDS: PROCHLORPERAZINE EDISYLATE 10 MG/2 ML VIAL IV PUSH (15:12)
[2024-01-04 16:57] VITALS: BP 118/82; PULSE 63; RESP 16; TEMP 36.4; O2SAT 99
== END 2024-01-04 16:58 | disposition home or self-care (01) ==
PROVIDERS: Emergency Provider Emergency Medicine; PCP Nurse Practitioner Family
DX: R51.9 Headache, unspecified (principal); M19.90 Unspecified osteoarthritis, unspecified site; F41.9 Anxiety disorder, unspecified; Z87.442 Personal history of urinary calculi; F17.210 Nicotine dependence, cigarettes, uncomplicated; Z79.899 Other long term (current) drug therapy
CPT/HCPCS: 70450; 82948; 96361; 96374; 96375; 99284; J0780; J1200; J1885; J7030

== ENCOUNTER 2024-01-09 19:11 | Emergency (ER) | payer MEDICAID, SELFPAY ==
[2024-01-09] VITALS (22 sets, daily range): BP systolic 123–163; BP diastolic 65–142; PULSE 42–90; RESP 11–25; TEMP 36.3–36.7; O2SAT 96–100
--- NOTE | ~2024-01-09 | XR_ITS ---
EXAMINATION: XR abdomen gastric tube insert DATE: 01/10/2024 02:06 INDICATION: Orogastric tube placement. TECHNIQUE: A supine view of the abdomen was obtained. COMPARISON: None. FINDINGS: The lower abdomen is excluded. The nasogastric tube tip is in the stomach. The endotracheal tube tip is 1.5 cm above the carey. IMPRESSION: 1. Nasogastric tube tip in the stomach. Reviewed, dictated and finalized at location A.
--- NOTE | ~2024-01-09 | XR_ITS ---
EXAMINATION: XR chest ET placement DATE: 01/10/2024 02:06 INDICATION: Intubation. TECHNIQUE: A single frontal view of the chest was obtained. COMPARISON: Chest single view 03/16/2023, chest CT 11/02/2020 FINDINGS: The patient is rotated to her left. No pneumonia, pleural effusion, or pneumothorax. The he art size is normal. There is a prominent left pericardial fat pad. The endotracheal tube tip is 1.5 c m above the carey. The nasogastric tube tip is in the stomach. IMPRESSION: 1. No acute cardiopulmonary disease. Reviewed, dictated and finalized at location A.
--- NOTE | ~2024-01-09 | CT_ITS ---
EXAMINATION: CTA brain carotid DATE: 01/10/2024 02:08 INDICATION: Headache. TECHNIQUE: Computed tomographic angiography (CTA) of the head was performed with 100 mL Omnipaque-350 intravenous contrast. CTA of the neck was performed with intravenous contrast. Automated exposure co ntrol and iterative reconstruction technique were employed. The dose-length product was 881.30 mGy-cm . Maximum intensity projection and volume rendered 3D-reconstructions were created by the [id number] t on a separate workstation. COMPARISON: Head CT 01/10/2024 FINDINGS: HEAD CTA: There are acute intraparenchymal hematomas in the parietal and occipital lobes bilaterally, right worse than left. There is acute subarachnoid hemorrhage in sulci in the parietal and occipital lobes bilaterally and right frontal lobe. There is no acute ischemic infarct or abnormal mass lesion . The ventricles are normal in size. There is mild mucosal thickening in right maxillary sinus. The m astoid air cells are normal. The vertebral arteries are codominant. There is associated stenosis of b asilar artery or the posterior cerebral arteries. There is no significant stenosis of intracranial in ternal carotid arteries or anterior or middle cerebral arteries. Anterior communicating artery is nor mal. The posterior communicating arteries are normal. There is no aneurysm. NECK CTA: Partially visualized are endotracheal and orogastric tubes. There are no pathologically enl arged lymph nodes. There is no significant stenosis of the vertebral arteries. There is mild plaque i n the proximal left internal carotid artery. There is 0% stenosis of the proximal right internal mills tid artery relative to normal distal artery lumen diameter (NASCET criteria). There is 0% stenosis of the proximal left internal carotid artery relative to normal distal artery lumen diameter. There is severe spondylosis at C5-C6 and mild spondylosis at other levels. IMPRESSION: 1. Acute intraparenchymal hematomas and subarachnoid hemorrhage in the parietal lobes and occipital l obes and acute subarachnoid hemorrhage in the right frontal lobe. 2. No aneurysm or significant intracranial arterial stenosis. 3. 0% stenosis of the proximal internal carotid arteries relative to normal distal artery lumen diame ters (NASCET criteria). Reviewed, dictated and finalized at location A. IMPRESSION: 1. Acute intraparenchymal hematomas and subarachnoid hemorrhage in the parietal lobes and occipital lobes and acute subarachnoid hemorrhage in the right front al lobe. 2. No aneurysm or significant intracranial arterial stenosis. 3. 0% stenosis of the proximal internal carotid arteries relative to normal dis kadi artery lumen diameters (NASCET criteria).
--- NOTE | ~2024-01-09 | CT_ITS ---
EXAMINATION: CT brain wo con DATE: 01/10/2024 00:46 INDICATION: Headache. TECHNIQUE: Computed tomography (CT) of the head was performed without intravenous contrast. The mA wa s adjusted according to patient size. Iterative reconstruction technique was employed. The dose-lengt h product was 681.00 mGy-cm. COMPARISON: Head CT 01/04/2024 FINDINGS: There are acute intraparenchymal hematomas in the parietal and occipital lobes bilaterally, right worse than left. There is acute subarachnoid hemorrhage in sulci in the parietal and occipital lobes bilaterally and right frontal lobe. There is no acute ischemic infarct or abnormal mass lesion . The ventricles are normal in size. There is mild mucosal thickening in right maxillary sinus. The m astoid air cells are normal. IMPRESSION: 1. Acute intraparenchymal hematomas and subarachnoid hemorrhage in the parietal lobes and occipital l obes and acute subarachnoid hemorrhage in the right frontal lobe. Reviewed, dictated and finalized at location A. IMPRESSION: 1. Acute intraparenchymal hematomas and subarachnoid hemorrhage in the parietal lobes and occipital lobes and acute subarachnoid hemorrhage in the right front al lobe.
--- NOTE | 2024-01-09 19:55 | PC.NURSE ---
patient states that she has a headache and that this episode has been going on now for 4 days. Patient states that she was prescribed migraine headache relief medication but does not remember the name. Patient connected to monitor and storage bin tender and focused neuro assessment completed. patient states she is not able to see but can see shadows.
--- NOTE | 2024-01-09 19:59 | ED.GENADULT ---
HPI - General Adult General Chief complaint: Headache Stated complaint: migraine Time Seen by Provider: 01/09/24 19:49 History of Present Illness HPI narrative: Patient 53-year-old female who presents emergency department with chief complaint of headache. Patient reports that she was seen in the emergency department earlier this month with a headache was treated with migraine cocktail states she initially got better but then her headache returned patient has seen her primary care provider was started on the medications and reports that yesterday she started having headache again reports this time she has had some mild visual changes with that the patient reports been continuous since yesterday patient reports no focal weakness reports that this is not the worst headache of her life the patient reports no changes in speech reports no new trauma patient did have a CT head performed on her previous visit. Related Data Home Medications Medication Instructions Recorded Confirmed albuterol sulfate 90 mcg/actuation 2 puff inhalation Q4H PRN 10/26/22 01/04/24 aerosol inhaler (Ventolin HFA) Shortness Of Breath Or Wheezing aripiprazole 5 mg tablet 10 mg PO DAILY 11/14/22 01/04/24 duloxetine 60 mg capsule,delayed 60 mg PO DAILY 11/14/22 01/04/24 release hydroxyzine pamoate 50 mg capsule 50 mg PO QID 11/14/22 01/04/24 buprenorphine 5 mcg/hour weekly See Rx Instructions .Route .COMPLEX 01/04/24 01/04/24 transdermal patch clonidine HCl 0.3 mg tablet See Rx Instructions .Route .COMPLEX 01/04/24 01/04/24 gabapentin 400 mg capsule See Rx Instructions .Route .COMPLEX 01/04/24 01/04/24 lamotrigine 200 mg tablet 200 mg PO DAILY 01/04/24 01/04/24 meloxicam 15 mg tablet 15 mg PO DAILY 01/04/24 01/04/24 trazodone 150 mg tablet 150 mg PO DAILY 01/04/24 01/04/24 Allergies Allergy/AdvReac Type Severity Reaction Status Date / Time Hfdncgi-PRG-JsV Reductase AdvReac Intermediate Muscle Verified 01/09/24 19:20 Inhibitor cramps/pain [Nhafult-Kab-Cti Reductase Inhibitor] Review of Systems Review of Systems: A 10 system review of systems was completed on the patient and is negative except for what is stated in the HPI. Nursing and ancillary documentation was reviewed. [facility] Past Medical History Medical History Anxiety disorder Arthritis Atrial tachycardia Chronic back pain Degenerative cervical disc Kidney stones Lumbar degenerative disc disease Tobacco use Surgical History Surgical History History of endometrial ablation History of tubal ligation Family History Family History Mother Family history of malignant neoplasm Lymphoma Depression Hodgkin lymphoma Father Patient's father is Estranged from father does not know his past history Sibling Thyroid cancer Other Heart disease Grandmother of heart failure Other Family history of malignant neoplasm of breast Social History Social History Smoking packs per day: 0.5 Smoking cigarettes per day: 10.0 Years smoked: 30 Smoking pack-years: 15.00 Smoking status: Current every day smoker Second hand tobacco smoke exposure: Yes Alcohol intake: never Substance use: never Substance use type: does not use Lack of Transportation: No Lack of Food: Never True Current Housing: I Have Housing Concerned About Future Housing: No Difficulty Paying Gas/Electric Bills: No Difficulty Paying for Meds: No Currently Unemployed: No Education: High School Diploma/GED Difficulty w/ Childcare or Family Care: No Additional living arrangements comments: Lives in [place] with her dog. She has 1 daughter. Additional occupation/education comments: Patient quit her job approxim
[2024-01-09] MEDS: MAGNESIUM SULF 1 GM/D5W 100 ML 1 GM/100 ML BAG IVPB (20:04)
[2024-01-09] MEDS: diphenhydrAMINE HCl INJ 50 MG/ML VIAL IV PUSH (20:05)
[2024-01-09] MEDS: PROCHLORPERAZINE EDISYLATE 10 MG/2 ML VIAL IV PUSH (20:05)
[2024-01-09] MEDS: dexAMETHasone SOD PHOS INJ 10 MG/ML 1 ML VIAL IV PUSH (20:05)
[2024-01-09] MEDS: KETOROLAC 15 MG/ML VIAL (*BKC) IV PUSH (20:05)
--- NOTE | 2024-01-09 20:16 | PC.NURSE ---
RN started mag 1g. via IV pump at this time.
[2024-01-09] MEDS: SODIUM CHLORIDE 0.9% IV 1,000 ML 999 ML IV CONT (21:18)
[2024-01-09] MEDS: ACETAMINOPHEN 500 MG TABLET 1000 MG PO (21:19)
[2024-01-09] MEDS: VALPROATE SODIUM INJ 500 MG in DEXTROSE 5% IN WATER 50 ML 55 MG IVPB (21:43)
[2024-01-09] MEDS: SUMAtriptan SUCCINATE 6 MG/0.5 ML VIAL SUB-Q (21:48)
--- NOTE | 2024-01-09 22:00 | PC.NURSE ---
RN made provider aware of this patient mental status change, no new orders given. Informed to wait on radiology.
[2024-01-09 23:08] LABS: Add Urine Microscopic? NO; Appearance Urine Clear (Clear); Bilirubin Urine Negative (Negative); Blood Urine Negative (Negative); Color Urine Yellow (Yellow); Glucose Urine UA Negative (Negative); Ketones Urine Trace mg/dL (Negative); Leukocyte Esterase Ur Negative LEU/UL (Negative); Nitrate Urine Negative (Negative); Protein Urine Negative (Negative); Specific Grav Ur 1.008 (1.001-1.035); Urobilinogen Urine 0.2 mg/dL (<2.0)
[2024-01-10] VITALS (14 sets, daily range): BP systolic 146–176; BP diastolic 54–86; PULSE 47–90; RESP 14–23; TEMP 36.6; O2SAT 95–100
--- NOTE | 2024-01-10 00:14 | PC.NURSE ---
RN called rR
--- NOTE | 2024-01-10 00:15 | PC.NURSE ---
RN called Radiology at this to get update on status of patient going for scan. RN informed NAYELY. made aware.
[2024-01-10 00:37] LABS: Basophils Percent Auto 0.2 % (0.2-1.2); Hematocrit 47.8 % (37.0-47.0); Hemoglobin 15.5 g/dL (12.0-15.0); Immature Granulocyte Absolute 0.04 K/mm3 (0.00-0.031); Immature Granulocyte Percent A 0.3 % (0-0.5); Lymphocytes Absolute Auto 0.86 K/mm3 (0.9-3.2); Mean Corpuscular HGB Conc 32.4 g/dl (32-36); Mean Corpuscular Hemoglobin 30.5 pg (26-34); Mean Corpuscular Volume 93.9 fl (80-100); Mean Platelet Volume 10.1 fl (7.4-10.4); Monocytes Absolute Auto 0.1 K/mm3 (0.1-0.6); Monocytes Percent Auto 0.6 % (2.6-8.5); Neutrophils Absolute Auto 11.3 K/mm3 (1.3-6.7); Neutrophils Percent Auto 91.9 % (45.5-73.1); Platelet Count Result 306 k/mm3 (150-375); Red Blood Count 5.09 M/mm3 (4.2-5.4); Red Cell Distribution Width 12.2 % (11.5-14.5); White Blood Count 12.3 K/mm3 (4.5-10.0)
[2024-01-10] MEDS: levETIRAcetam 1000MG/NACL100ML 1,000 MG/100 ML BAG 400 MG IVPB (00:55)
[2024-01-10 00:57] LABS: Alanine Aminotransferase 22 U/L (6-35); Albumin Level 4.7 g/dL (3.5-5.1); Alkaline Phosphatase 167 U/L (38-126); Anion Gap 13 mmol/L (4-12); Aspartate Amino Transferase 23 U/L (14-36); Bilirubin,Total 0.9 mg/dL (0.2-1.3); Blood Urea Nitrogen 11 mg/dL (7-17); Calcium 9.4 mg/dL (8.4-10.2); Carbon Dioxide 25 mmol/L (22-30); Chloride 105 mmol/L (98-107); Estimated CRCL calculation 72 ml/min; Estimated Glomerular Filt Rate > 60; Glucose 145 mg/dL (65-110); Potassium 4.2 mmol/L (3.4-5.0); Sodium 143 mmol/L (137-145)
--- NOTE | 2024-01-10 01:21 | PC.NURSE ---
Addendum entered by Isrrael King RN 01/10/24 01:41: 0110- Patient has + gag reflux. 0115-MD made decision to intubate patient. 0116- Staff begin to prepare patient for intubation. 0118-Respiratory called 0127- Intubation begins 0128 - Color change noted. 0132- Respiratory bagging Medication 20 - etomidate 0126 given 100- succinylcholine 0126 given 1000 L of Normal Saline Bolus - 0126 given Intubation ET Tube Size - 7.5 23 at lip. Lines 0105-2, 20G IV's Started on the right forearm and Right AC. 0131- OG placed 16, + Spontaneous return. 0132- Dey Placed, 0129- X-Ray called for Original Note: 0110- Patient has + gag reflux. 0115-MD made decision to intubate patient. 0116- Staff begin to prepare patient for intubation. 0118-Respiratory called 0127- Intubation begins 0128 - Color change noted. 0132- Respiratory baggi n Medication 20 - etomidate 0126 given 100- succinylcholine 0126 given 1000 L of Normal Saline Bolus - 0126 given Intubation ET Tube Size - 7.5 23 at lip. Lines 0105-2, 20G IV's Started on the right forearm and Right AC. 0131- OG placed 16, + Spontaneous return. 0132- Dey Placed, 0129- X-Ray called for
[2024-01-10] MEDS: PROPOFOL IV EMULSION 100 ML 2.04 MG IV CONT (01:38)
[2024-01-10] MEDS: niCARdipine 20 MG/200 ML 20 MG/200 ML BAG 50 MG IV CONT (01:41)
[2024-01-10] MEDS: LORazepam INJ (*CRX) 2 MG/ML VIAL 4 MG IV PUSH (01:42)
[2024-01-10] MEDS: PROPOFOL IV EMULSION 200 MG/20 ML VIAL 40 MG IV PUSH (01:55)
--- NOTE | 2024-01-10 02:03 | PC.NURSE ---
MD Martínez gave verbal order at this time to administer Versed IV Push 4 mg. 0204 Administered via forearm IV.
[2024-01-10] MEDS: MIDAZOLAM HCL (*CRX) 2 MG/2 ML VIAL 4 MG IV PUSH (02:04)
--- NOTE | 2024-01-10 02:11 | PC.NURSE ---
CALLED [phone] TO INFORM PT'S DAUGHTER DWIGHT OF PT'S CONDITION AND TRANSFER TO [facility] ED. DWIGHT DID NOT ANSWER AND HER VOICEMAIL DID NOT IDENTIFY HER, NO VOICEMAIL WAS LEFT.
--- NOTE | 2024-01-10 02:14 | PC.NURSE ---
nurse report to daisha philippe @ [facility] er
--- NOTE | 2024-01-10 02:15 | PC.NURSE ---
CALLED PT'S DAUGHTER DWIGHT AGAIN. DWIGHT ANSWERED AND WAS INFORMED BY DR. GONZALEZ AND MYSELF OF PT'S CONDITION AND PLAN FOR TRANSFER TO [facility] ED.
== END 2024-01-10 02:51 | disposition short-term general hospital (02) ==
PROVIDERS: Emergency Provider Emergency Medicine; PCP Nurse Practitioner Family
DX: I62.9 Nontraumatic intracranial hemorrhage, unspecified (principal); I60.9 Nontraumatic subarachnoid hemorrhage, unspecified; M19.90 Unspecified osteoarthritis, unspecified site; F41.9 Anxiety disorder, unspecified; F17.210 Nicotine dependence, cigarettes, uncomplicated; Z87.442 Personal history of urinary calculi; Z79.899 Other long term (current) drug therapy
CPT/HCPCS: 31500; 36415; 70450; 70496; 70498; 80053; 81003; 85025; 96365; 96367; 96368; 96372; 96375; 99291; A9270; J0330; J0780; J1100; J1200; J1885; J1953; J2060; J2250; J2404; J2704; J3030; J3475; J7030; Q9967